=== PATIENT | female | born 1935 | race Caucasian/White ===

== ENCOUNTER 2016-10-28 22:52 | Inpatient (IN) | payer OTHER, MEDICARE ==
[2016-10-28 22:58] VITALS: BP 141/92; PULSE 88; RESP 18; TEMP 97.5; O2SAT 97
[2016-10-29] MEDS ORDERED: SODIUM CHLOR 0.9% 1000 ML INJ 1,000 ML IV SCH (00:15)
[2016-10-29] MEDS ORDERED: ONDANSETRON HCL 4 MG/2 ML VIAL IVP ONE (00:15)
[2016-10-29] MEDS ORDERED: MORPHINE SULFATE 4 MG/ML INJ IV PUSH ONE ×2 (00:15→04:30)
--- NOTE | 2016-10-29 01:04 | RADRPT ---
EXAM DATE/TIME: 10/29/2016 00:49 [place] COMPARISON: No previous studies available for comparison. INDICATIONS : Abdominal pain. ORAL CONTRAST: Patient refused oral contrast. RADIATION DOSE: 9.96 CTDIvol (mGy) MEDICAL HISTORY : None SURGICAL HISTORY : None. ENCOUNTER: Initial ACUITY: 1 day PAIN SCALE: 6/10 LOCATION: abdomen TECHNIQUE: Volumetric scanning of the abdomen and pelvis was performed. Using automated exposure control and ad justment of the mA and/or kV according to patient size, radiation dose was kept as low as reasonably achievable to obtain optimal diagnostic quality images. FINDINGS: LOWER LUNGS: The visualized lower lungs are clear. LIVER: Homogeneous density without lesion. The liver margins are mildly lobular. The patient is status post cholecystectomy. There is no dilation of the biliary tree. No calcified gallstones. SPLEEN: Normal size without lesion. PANCREAS: W normal in size and shape. There are calcifications along the scalp. KIDNEYS: Normal in size and shape. There is no mass, stone, or hydronephrosis. ADRENAL GLANDS: Within normal limits. VASCULAR: There is no aortic aneurysm. BOWEL/MESENTERY: The stomach, small bowel, and colon demonstrate no acute abnormality. There is no free intraperitone al air or fluid. ABDOMINAL WALL: Within normal limits. RETROPERITONEUM: There is no lymphadenopathy. BLADDER: No wall thickening or mass. REPRODUCTIVE: Within normal limits. INGUINAL: There is no lymphadenopathy or hernia. MUSCULOSKELETAL: Osteopenia, degenerative changes and scoliosis are present. There are multiple compression fracture d eformities in the thoracic and lumbar spine as well as multiple kyphoplasty's. Patient is status post bilateral hip surgery. CONCLUSION: 1. Mildly cirrhotic appearing liver. 2. Evidence of chronic pancreatitis. 3. Status post cholecystectomy. Bobby Estes MD on October 29, 2016 at 1:00 Board Certified Radiologist. This report was verified electronically.
[2016-10-29] MEDS ORDERED: ATOR40TA16 PO (01:35)
[2016-10-29] MEDS ORDERED: ALPR.5 PO (01:35)
[2016-10-29] MEDS: SODIUM CHLORIDE 0.9% FLUSH 10 ML FLUSH IV FLUSH PRN ×3 (01:57→06:48)
[2016-10-29 02:20] LABS: AUTOMATED NEUTROPHIL # 8.8 TH/MM3 (1.8-7.7); BASOPHIL # 0.2 TH/MM3 (0-0.2); BASOPHIL % 1.1 % (0.0-2.0); EOSINOPHIL # 0.3 TH/MM3 (0-0.4); EOSINOPHIL % 1.8 % (0.0-4.0); HEMATOCRIT 40.9 % (35.0-46.0); LYMPH % 30.8 % (9.0-44.0); LYMPHOCYTE # 5.2 TH/MM3 (1.0-4.8); MEAN CELL VOLUME 98.5 FL (80.0-100.0); MEAN CORPUSCULAR HEMOGLOBIN 31.7 PG (27.0-34.0); MEAN CORPUSCULAR HGB CONC 32.2 % (32.0-36.0); MONO % 14.1 % (0.0-8.0); NEUT % 52.2 % (16.0-70.0); PLATELET COUNT 325 TH/MM3 (150-450); RED BLOOD COUNT 4.15 MIL/MM3 (4.00-5.30); RED CELL DISTRIBUTION WIDTH 14.8 % (11.6-17.2); WHITE BLOOD COUNT 16.8 TH/MM3 (4.0-11.0)
[2016-10-29 02:22] LABS: HEMO FLAGS AUTO DIFF
--- NOTE | 2016-10-29 02:44 | PD ---
HPI Chief Complaint: Abdominal Pain Time Seen by Provider: 00:06 Travel History International Travel<30 days: No Contact w/Intl Traveler<30days: No Traveled to known affect area: No History of Present Illness HPI Patient is a 81 year old female who comes in complaining of abdominal pain. She says she has had diarrhea for the past few days, but developed severe pain to her abdomen tonight. She says she has had nausea and vomiting. She took an anti-emetic at home, which has helped. She denies fever or chills. She localizes her pain to her upper abdomen and left side. She denies recent antibiotic use. She has extensive history of abdominal surgeries. Most recently she had a procedure for a SBO last year and had issues with healing. PFSH Past Medical History High Cholesterol: Yes Diminished Hearing: Yes Tetanus Vaccination: > 5 Years Past Surgical History Neurologic Surgery: Yes (craniotomy*2 ) Other Surgery: Yes (splenectomy ) Social History Alcohol Use: No Tobacco Use: No Substance Use: No Allergies-Medications (Allergen,Severity, Reaction): Coded Allergies: Contrast Media (Verified Allergy, Unknown, 10/28/16) Penicillin (Verified Allergy, Unknown, 10/28/16) Sulfa (Verified Allergy, Unknown, 10/28/16) Tramadol (Verified Allergy, Unknown, 10/28/16) Reported Meds & Prescriptions Reported Meds & Active Scripts Active Reported Atorvastatin (Atorvastatin Calcium) 40 Mg Tab 40 Mg PO HS Xanax (Alprazolam) 0.5 Mg Tab 0.5 Mg PO Q6H PRN Review of Systems Except as stated in HPI: all other systems reviewed are Neg General / Constitutional: No: Fever, Chills Eyes: No: Blurred Vision HENT: No: Headaches Cardiovascular: No: Chest Pain or Discomfort Respiratory: No: Shortness of Breath Gastrointestinal: Positive: Nausea, Vomiting, Diarrhea, Abdominal Pain Genitourinary: No: Dysuria Musculoskeletal: No: Edema Skin: No Rash, No Change in Pigmentation Neurologic: No: Weakness, Dizziness Physical Exam Narrative GENERAL: Awake and alert, in mild distress due to pain. SKIN: Focused skin assessment warm/dry. HEAD: Atraumatic. Normocephalic. EYES: Pupils equal and round. No scleral icterus. ENT: Mucous membranes pink and moist. NECK: Trachea midline. No JVD. CARDIOVASCULAR: Regular rate and rhythm. No murmur appreciated. RESPIRATORY: No accessory muscle use. Clear to auscultation. Breath sounds equal bilaterally. GASTROINTESTINAL: Abdomen soft, nondistended. Tender to palpation of the epigastric and left upper quadrant areas of her abdomen. No rebound, voluntary guarding. MUSCULOSKELETAL: No obvious deformities. No clubbing. No cyanosis. No edema. NEUROLOGICAL: Awake and alert. No obvious cranial nerve deficits. Motor grossly within normal limits. Normal speech. PSYCHIATRIC: Appropriate mood and affect; insight and judgment normal. Data Data Last Documented VS Vital Signs Date Time Temp Pulse Resp B/P Pulse Ox O2 Delivery O2 Flow Rate FiO2 10/29/16 05:27 96 20 166/77 96 Room Air 10/28/16 22:58 97.5 Orders Basic Metabolic Panel (Bmp) (10/29/16:15) Complete Blood Count With Diff (10/29/16:15) Lipase (10/29/16:15) Lactic Acid (10/29/16:15) Prothrombin Time / Inr (Pt) (10/29/16) Act Partial Throm Time (Ptt) (10/29/16:15) Urinalysis - C+S If Indicated (10/29/16:15) Ua Includes Microscopic (10/29/16:15) Iv Access Insert/Monitor (10/29/1615) Ecg Monitoring (10/29/16:15) Oximetry (10/29/16:15) Morphine Inj (Morphine Inj) (10/29/16:15) Ondansetron Inj (Zofran Inj) (10/29/16:15) Sodium Chlor 0.9% 1000 Ml Inj (Ns 1000 M (10/29/16:15) Sodium Chloride 0.9% Flush (Ns Flush) (10/29/16:15) Ct Abd/Pel W/O Iv Contrast (10/29/16 ) Hepatic Functional Panel (10/29/16:15) Oral Contrast - Adult (10/29/16 00:19) Urine Culture (10/29/16 00:30) Ceftriaxone Inj (Rocephin Inj) (10/29/16 04:30) Morphine Inj (Morphine Inj) (10/29/16 04:30) Ondansetron Inj (Zofran Inj) (10/29/16 04:30) Admit Order (Ed Use Only) (10/29/16 ) Metoclopramide Inj (Reglan Inj) (10/29/16 06:30) Hydromorphone Pf Inj (Dilaudid Pf Inj) (10/29/16 06:30) Ciprofloxacin 400 Mg Premix (Cipro 400 M (10/29/16 07:00) Metronidazole 500 Mg Inj (Flagyl 500 Mg (10/29/16 08:00) Admit To Inpatient (10/29/16 ) Vital Signs (Adult) Q4H (10/29/16 06:14) Activity Oob With Assistance (10/29/16 06:14) Intake + Output MARISOL.QSHIFT (10/29/16 06:14) Diet Clear Liquid (10/29/16 Breakfast) Sodium Chlor 0.9% 1000 Ml Inj (Ns 1000 M (10/29/16 06:14) Sodium Chloride 0.9% Flush (Ns Flush) (10/29/16 06:15) Sodium Chloride 0.9% Flush (Ns Flush) (10/29/16 09:00) Ondansetron Inj (Zofran Inj) (10/29/16 06:15) Comprehensive Metabolic Panel (10/30/16 06:00) Complete Blood Count With Diff (10/30/16 06:00) Lipase (10/30/16 06:00) Scd Bilateral/Knee High MARISOL.BID (10/29/16 06:14) Harry Bilateral/Knee High MARISOL.QSHIFT (10/29/16 06:14) Acetaminophen (Tylenol) (10/29/16 06:15) Hydromorphone Pf Inj (Dilaudid Pf Inj) (10/29/16 06:15) Oxycodone (Roxicodone) (10/29/16 06:15) Docusate Sodium-Senna (Celeste-Colace) (10/29/16 09:00) Magnesium Hydroxide Liq (Milk Of Magnesi (10/29/16 06:15) Sennosides (Senokot) (10/29/16 06:15) Bisacodyl Supp (Dulcolax Supp) (10/29/16 06:15) Lactulose Liq (Lactulose Liq) (10/29/16 06:15) Inpatient Certification (10/29/16 ) Lipid Profile (10/30/16 06:00) Thyroid Stimulating Hormone (10/30/16 06:00) Hemoglobin (Hgb) A1c (10/30/16 06:00) Alprazolam (Xanax) (10/29/16 06:15) Labs Laboratory Tests Test 10/29/16 10/29/16 10/29/16 10/29/16 00:30 01:42 01:45 03:26 Urine Color YELLOW Urine Turbidity HAZY Urine pH 5.5 Urine Specific [place] 1.021 Urine Protein TRACE mg/dL Urine Glucose (UA) NEG mg/dL Urine Ketones NEG mg/dL Urine Occult Blood TRACE Urine Nitrite NEG Urine Bilirubin NEG Urine Urobilinogen LESS THAN 2.0 MG/DL Urine Leukocyte Esterase LARGE Urine RBC 4 /hpf Urine WBC 20 /hpf Urine Squamous Epithelial 1 /hpf Cells Urine Bacteria MANY /hpf Urine Hyaline Casts 1 /lpf Urine Mucus FEW /lpf Microscopic Urinalysis Comment CULTURE INDICATED White Blood Count 16.8 TH/MM3 Red Blood Count 4.15 MIL/MM3 Hemoglobin 13.2 GM/DL Hematocrit 40.9 % Mean Corpuscular Volume 98.5 FL Mean Corpuscular Hemoglobin 31.7 PG Mean Corpuscular Hemoglobin 32.2 % Concent Red Cell Distribution Width 14.8 % Platelet Count 325 TH/MM3 Mean Platelet Volume 8.3 FL Neutrophils (%) (Auto) 52.2 % Lymphocytes (%) (Auto) 30.8 % Monocytes (%) (Auto) 14.1 % Eosinophils (%) (Auto) 1.8 % Basophils (%) (Auto) 1.1 % Neutrophils # (Auto) 8.8 TH/MM3 Lymphocytes # (Auto) 5.2 TH/MM3 Monocytes # (Auto) 2.4 TH/MM3 Eosinophils # (Auto) 0.3 TH/MM3 Basophils # (Auto) 0.2 TH/MM3 CBC Comment AUTO DIFF Differential Total Cells 100 Counted Neutrophils % (Manual) 50 % Band Neutrophils % 2 % Lymphocytes % 31 % Monocytes % 13 % Eosinophils % 2 % Basophils % 2 % Neutrophils # (Manual) 8.7 TH/MM3 Differential Comment FINAL DIFF MANUAL Atypical Lymphocytes % Platelet Estimate NORMAL Platelet Morphology Comment NORMAL Prothrombin Time 10.7 SEC Prothromb Time International 1.0 RATIO Ratio Activated Partial 25.0 SEC Thromboplast Time Lactic Acid Level 1.5 mmol/L Sodium Level 145 MEQ/L Potassium Level 4.3 MEQ/L Chloride Level 114 MEQ/L Carbon Dioxide Level 19.2 MEQ/L Anion Gap 12 MEQ/L Blood Urea Nitrogen 21 MG/DL Creatinine 1.14 MG/DL Estimat Glomerular Filtration 46 ML/MIN Rate Random Glucose 88 MG/DL Calcium Level 8.3 MG/DL Total Bilirubin 0.5 MG/DL Direct Bilirubin 0.2 MG/DL Indirect Bilirubin 0.3 MG/DL Aspartate Amino Transf 46 U/L (AST/SGOT) Alanine Aminotransferase 32 U/L (ALT/SGPT) Alkaline Phosphatase 92 U/L Total Protein 6.5 GM/DL Albumin 3.0 GM/DL Lipase U/L [facility] Medical Decision Making Medical Screen Exam Complete: Yes Emergency Medical Condition: Yes Differential Diagnosis Small bowel obstruction versus colitis versus pancreatitis versus cholecystitis Narrative Course Patient is an 81-year-old female comes in complaining of abdominal pain. Exam shows tenderness to the upper abdomen. IV established, labs sent. Patient given IV fluids, morphine, Zofran. CT abdomen and pelvis shows chronic pancreatitis. No evidence of SBO. Last 24 hours Impressions Abdomen/Pelvis CT 10/29/16 0000 Signed Impressions: Service Date/Time: Saturday, October 29, 2016 00:49 - CONCLUSION: 1. Mildly cirrhotic appearing liver. 2. Evidence of chronic pancreatitis. 3. Status post cholecystectomy. Bobby Estes MD Labs show an elevated white blood cell count. The chemistry lab, her lipase was too elevated to be resulted. They reported they did not have enough blood to run it again. A second sample was sent. Patient continues to have pain. She received an additional dose of morphine and Zofran. She had pain and nausea despite this. She was given Reglan and Dilaudid. She was admitted for further management. Diagnosis Primary Impression: Pancreatitis Qualified Code: K85.90 - Acute pancreatitis without infection or necrosis, unspecified pancreatitis type Additional Impressions: Leukocytosis Qualified Code: D72.829 - Leukocytosis, unspecified type Nausea and vomiting Qualified Code: R11.2 - Non-intractable vomiting with nausea, unspecified vomiting type Abdominal pain Qualified Code: R10.13 - Epigastric pain Admitting Information Admitting Physician Requests: Admit Condition: Rose Howard MD Oct 29, 2016 02:44
[2016-10-29 04:08] LABS: BACTERIA, URINE MANY /hpf; BLOOD, URINE TRACE (NEG); COMMENT (UR) CULTURE INDICATED; CULTURE IF INDICATED CULTURE INDICATED; GLUCOSE,URINE NEG (NEG); HYALINE CAST, URINE 1 /lpf (RARE); KETONE, URINE NEG (NEG); MUCUS URINE FEW /lpf (OCC); NITRITE,URINE NEG (NEG); PH, URINE 5.5 (5.0-8.5); SQUAMOUS EPITHELIAL CELL URINE 1 /hpf (0-5); URINE COLOR YELLOW (YELLW/STRAW)
[2016-10-29 04:15] LABS: BANDS 2 % (0-6); BASOPHILS 2 % (0-2); EOSINOPHILS 2 % (0-4); NEUTROPHIL # MANUAL DIFF 8.7 TH/MM3 (1.8-7.7); PLATELET ESTIMATE SMEAR NORMAL (NORMAL); POLYS (SEG NEUTROPHILS) 50 % (16-70); SCAN/DIFF FINAL DIFF MANUAL; WBC DIFF SAMPLE 100
[2016-10-29 04:16] LABS: PLATELET MORPHOLOGY NORMAL (NORMAL)
[2016-10-29 04:29] LABS: PROTHROMBIN TIME - PATIENT 10.7 SEC (9.8-11.6)
[2016-10-29] MEDS ORDERED: ONDANSETRON HCL 4 MG/2 ML VIAL IV PUSH ONE (04:30)
[2016-10-29] MEDS ORDERED: cefTRIAXone INJ 1,000 MG in SODIUM CHLORIDE 0.9% INJ 100 ML IV ONE (04:30)
[2016-10-29 04:39] LABS: BICARBONATE 19.2 MEQ/L (21.0-32.0); POTASSIUM 4.3 MEQ/L (3.5-5.1)
[2016-10-29 04:42] LABS: INDIRECT BILIRUBIN 0.3 MG/DL (0.0-0.8); TOTAL BILIRUBIN ADULT 0.5 MG/DL (0.2-1.0)
[2016-10-29 05:27] VITALS: BP 166/77; PULSE 96; RESP 20; O2SAT 96
[2016-10-29] MEDS ORDERED: SODIUM CHLORIDE 0.9% FLUSH 10 ML FLUSH IV FLUSH PRN (06:15)
[2016-10-29] MEDS ORDERED: LACTULOSE SYRUP 20 GM/30 ML CUP PO PRN (06:15)
[2016-10-29] MEDS ORDERED: MAGNESIUM HYDROXIDE SUSP 30 ML CUP PO PRN (06:15)
[2016-10-29] MEDS ORDERED: BISACODYL 10 MG SUPP RECTAL PRN (06:15)
[2016-10-29] MEDS ORDERED: ACETAMINOPHEN 325 MG TAB PO PRN (06:15)
[2016-10-29] MEDS ORDERED: SENNOSIDES 8.6 MG TAB PO PRN (06:15)
[2016-10-29] MEDS ORDERED: HYDROmorphone HCL PF 1 MG/ML VIAL IV PUSH ONE (06:30)
[2016-10-29] MEDS ORDERED: METOCLOPRAMIDE INJ 10 MG in SODIUM CHLORIDE 0.9% INJ 50 ML IV ONE (06:30)
[2016-10-29 08:00] VITALS: BP 149/77; PULSE 90; RESP 18; TEMP 96.6; O2SAT 93
[2016-10-29] MEDS: CIPROFLOXACIN 400 MG PREMIX 200 ML IV SCH ×2 (08:25→17:51)
[2016-10-29] MEDS: metroNIDAZOLE 500 MG INJ 100 ML IV SCH ×2 (08:26→17:52)
[2016-10-29] MEDS: ALPRAZolam 0.5 MG TAB PO PRN ×2 (08:26→14:21)
[2016-10-29] MEDS: SODIUM CHLOR 0.9% 1000 ML INJ 1,000 ML IV SCH ×2 (08:27→16:14)
[2016-10-29] MEDS: DOCUSATE SODIUM 50 MG/SENNA 8.6 MG TAB PO SCH ×2 (08:27→20:00)
[2016-10-29] MEDS: SODIUM CHLORIDE 0.9% FLUSH 10 ML FLUSH IV FLUSH SCH ×2 (08:27→20:00)
[2016-10-29 12:00] VITALS: BP 111/71; PULSE 103; RESP 18; TEMP 95.3; O2SAT 95
[2016-10-29] MEDS: ONDANSETRON HCL 4 MG/2 ML VIAL IVP PRN (14:21)
[2016-10-29] MEDS: HYDROmorphone HCL PF 1 MG/ML VIAL IV PRN ×2 (14:21→20:01)
[2016-10-29 16:00] VITALS: BP 113/73; PULSE 86; RESP 18; TEMP 95.5; O2SAT 95
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
[2016-10-29 20:05] LABS: BICARBONATE 16.7 MEQ/L (21.0-32.0); MAGNESIUM 1.8 MG/DL (1.5-2.5); POTASSIUM 4.1 MEQ/L (3.5-5.1)
[2016-10-29 20:08] LABS: HDL CHOLESTEROL 38.7 MG/DL (40.0-60.0)
[2016-10-29 20:10] VITALS: BP 120/60; PULSE 89; RESP 16; TEMP 97.7; O2SAT 94
[2016-10-29 20:59] LABS: AUTOMATED NEUTROPHIL # 8.3 TH/MM3 (1.8-7.7); BASOPHIL # 0.2 TH/MM3 (0-0.2); BASOPHIL % 1.1 % (0.0-2.0); EOSINOPHIL # 0.2 TH/MM3 (0-0.4); EOSINOPHIL % 1.4 % (0.0-4.0); HEMATOCRIT 34.7 % (35.0-46.0); LYMPH % 27.3 % (9.0-44.0); LYMPHOCYTE # 4.1 TH/MM3 (1.0-4.8); MEAN CELL VOLUME 98.9 FL (80.0-100.0); MEAN CORPUSCULAR HEMOGLOBIN 31.4 PG (27.0-34.0); MEAN CORPUSCULAR HGB CONC 31.8 % (32.0-36.0); MONO % 14.9 % (0.0-8.0); NEUT % 55.3 % (16.0-70.0); PLATELET COUNT 263 TH/MM3 (150-450); RED CELL DISTRIBUTION WIDTH 14.2 % (11.6-17.2)
[2016-10-29 21:02] LABS: HEMO FLAGS AUTO DIFF
[2016-10-29 21:20] LABS: TOTAL BILIRUBIN ADULT 0.3 MG/DL (0.2-1.0)
[2016-10-29 21:32] LABS: PLATELET ESTIMATE SMEAR NORMAL (NORMAL); PLATELET MORPHOLOGY NORMAL (NORMAL); SCAN/DIFF AUTO DIFF CONFIRMED
[2016-10-29] MEDS: HEPARIN SODIUM - SQ 10,000 UNITS/ML VIAL SQ SCH (21:51)
[2016-10-30 00:10] VITALS: BP 142/79; PULSE 91; RESP 17; TEMP 97.5; O2SAT 94
[2016-10-30] MEDS: ALPRAZolam 0.5 MG TAB PO PRN ×3 (00:13→23:20)
[2016-10-30] MEDS: ONDANSETRON HCL 4 MG/2 ML VIAL IVP PRN ×3 (00:13→15:16)
[2016-10-30] MEDS: metroNIDAZOLE 500 MG INJ 100 ML IV SCH ×4 (00:13→23:21)
[2016-10-30] MEDS: SODIUM CHLOR 0.9% 1000 ML INJ 1,000 ML IV SCH ×2 (02:14→12:14)
[2016-10-30] MEDS: CIPROFLOXACIN 400 MG PREMIX 200 ML IV SCH ×2 (06:18→18:29)
[2016-10-30] MEDS: HEPARIN SODIUM - SQ 10,000 UNITS/ML VIAL SQ SCH ×3 (06:18→21:37)
[2016-10-30] MEDS: HYDROmorphone HCL PF 1 MG/ML VIAL IV PRN ×5 (06:23→21:38)
[2016-10-30 07:17] LABS: ANION GAP 11 MEQ/L (5-15); AST (GOT) 35 U/L (15-37); BICARBONATE 17.5 MEQ/L (21.0-32.0); BLOOD UREA NITROGEN 11 MG/DL (7-18); CHLORIDE 116 MEQ/L (98-107); GLOMERULAR FILTRATION RATE 81 ML/MIN (>89); MAGNESIUM 1.7 MG/DL (1.5-2.5); POTASSIUM 3.9 MEQ/L (3.5-5.1); SODIUM (NA) 144 MEQ/L (136-145)
[2016-10-30 07:18] LABS: ALT (GPT) 41 U/L (10-53)
[2016-10-30 07:22] LABS: AUTOMATED NEUTROPHIL # 4.5 TH/MM3 (1.8-7.7); BASOPHIL # 0.1 TH/MM3 (0-0.2); BASOPHIL % 0.7 % (0.0-2.0); EOSINOPHIL # 0.4 TH/MM3 (0-0.4); EOSINOPHIL % 3.8 % (0.0-4.0); HEMO FLAGS DIFF FINAL; LYMPH % 38.3 % (9.0-44.0); LYMPHOCYTE # 4.1 TH/MM3 (1.0-4.8); MEAN CELL VOLUME 99.5 FL (80.0-100.0); MEAN CORPUSCULAR HEMOGLOBIN 33.2 PG (27.0-34.0); MEAN CORPUSCULAR HGB CONC 33.4 % (32.0-36.0); MONO % 15.2 % (0.0-8.0); PLATELET COUNT 261 TH/MM3 (150-450); RED BLOOD COUNT 3.21 MIL/MM3 (4.00-5.30); RED CELL DISTRIBUTION WIDTH 14.5 % (11.6-17.2); WHITE BLOOD COUNT 10.6 TH/MM3 (4.0-11.0)
[2016-10-30 07:26] LABS: ALKALINE PHOSPHATASE 84 U/L (45-117); HDL CHOLESTEROL 36.3 MG/DL (40.0-60.0); LDL CHOLESTEROL 32 MG/DL (0-99); TOTAL BILIRUBIN ADULT 0.5 MG/DL (0.2-1.0)
[2016-10-30 07:57] VITALS: BP 129/76; PULSE 88; RESP 18; TEMP 97; O2SAT 94
[2016-10-30] MEDS: SODIUM CHLORIDE 0.9% FLUSH 10 ML FLUSH IV FLUSH SCH ×2 (08:59→21:00)
[2016-10-30] MEDS: DOCUSATE SODIUM 50 MG/SENNA 8.6 MG TAB PO SCH ×2 (09:00→21:37)
[2016-10-30 12:00] VITALS: BP 147/81; PULSE 99; RESP 18; TEMP 97.1; O2SAT 92
[2016-10-30] MEDS: POTASSIUM PHOSPHATE MONOBASIC 500 MG TAB PO SCH ×2 (13:00→21:37)
[2016-10-30] MEDS ORDERED: DEXTROSE 50% IN WATER 50 ML VIAL(D50) IV PUSH PRN (13:15)
[2016-10-30] MEDS ORDERED: GLUCAGON 1 MG/ML VIAL OTHER PRN (13:15)
[2016-10-30] MEDS ORDERED: PHENERGAN 25 MG/ML IV ONE (15:30)
[2016-10-30] MEDS ORDERED: PHENERGAN 25 MG/ML IM ONE ×2 (15:30→15:45)
[2016-10-30 16:00] VITALS: BP 183/95; PULSE 100; RESP 18; TEMP 97.6; O2SAT 92
[2016-10-30 16:52] VITALS: BP 159/87
--- NOTE | 2016-10-30 17:06 | HHI.PR ---
Subjective Remarks Patient feels extremely nauseous today she cannot handle her liquid diet I told her to stop any diet and stay nothing by mouth we'll consult GI we'll continue iv fluid I will increase the rate Objective Vitals Vital Signs Date Time Temp Pulse Resp B/P Pulse Ox O2 Delivery O2 Flow Rate FiO2 10/30/16 16:52 159/87 10/30/16 16:00 97.6 100 18 183/95 92 10/30/16 12:00 97.1 99 18 147/81 92 10/30/16 07:57 97.0 88 18 129/76 94 10/30/16 00:10 97.5 91 17 142/79 94 10/29/16 20:10 97.7 89 16 120/60 94 I/O 10/29/16 10/29/16 10/29/16 10/30/16 10/30/16 10/30/16 07:00 15:00 23:00 07:00 15:00 23:00 Intake Total 480 ml 240 ml 1020 ml 240 ml Balance 480 ml 240 ml 1020 ml 240 ml Intake Oral 480 ml 240 ml 240 ml IV Total 1020 ml # Voids 1 1 1 1 # Bowel Movements 0 0 0 Result Diagram: 10/30/1662010/30/16620 Objective Remarks - - GENERAL: This is a frail elderly lady in mild distress due to nausea SKIN: No rashes, warm and dry HEAD: Atraumatic. Normocephalic. EYES: Pupils equal round and reactive. Extraocular motions intact. No scleral icterus. ENT: Nose without bleeding, or drainage, Airway patent. NECK: Trachea midline. Supple CARDIOVASCULAR: Regular rate and rhythm without murmurs, gallops, or rubs. RESPIRATORY: Fair air entry bilaterally. No wheezes, rales, or rhonchi. GASTROINTESTINAL: Abdomen soft, mildly tender in the epigastric area, nondistended. Positive bowel sounds MUSCULOSKELETAL: Extremities without clubbing, cyanosis, or edema. Pedal pulses appreciated NEUROLOGICAL: Awake and alert. Moves all extremity. Normal speech.no focal neurological deficit A/P Assessment and Plan 81 years old female with history of previous SBO status post complicated surgery , hyperlipidemia came today with Severe abdominal pain with nausea vomiting and watery diarrhea Cirrhotic liver appearance on CT abdomen along with increased AST, rule out alcoholism versus NFLD Chronic pancreatitis showed on CT abdomen which was personally reviewed by me Leukocytosis WBC 16,000, no bandemia Hypophosphatemia FIGUEROA versus CKD creatinine 1.14 we don't have baseline Metabolic acidosis with bicarbonate 19 UTI with RBC and microscopic hematuria DVT prophylaxis with SCD and heparin Plan: Change diet to nothing by mouth, lipase level dropped from 1181 yesterday to 851 today A phosphorus hyperphosphatemia, check T4 for low TSH Send urine for C&S and stool for C&S and parasites and ova Started on Cipro and Flagyl, Cipro will cover UTI Generous iv fluid normal saline Dilaudid 4 pain management L Consider GI consult if needed CT abdomen personally reviewed by me Check hepatitis panel, fasting lipid profile panel Patient denied alcohol. In her life Vignesh Cagle MD Oct 30, 2016 17:05
[2016-10-30] MEDS: INSULIN ASPART SUPPLEMENTAL SCALE SQ SCH ×2 (17:50→21:00)
[2016-10-30] MEDS ORDERED: ATEN50TA PO (18:35)
[2016-10-30] MEDS ORDERED: ASPI81CH CHEW (18:37)
[2016-10-30] MEDS ORDERED: ALEVE PO (18:37)
[2016-10-30 20:05] VITALS: BP 183/94; PULSE 115; RESP 18; TEMP 98; O2SAT 94
[2016-10-31 00:05] VITALS: BP 138/85; PULSE 99; RESP 18; TEMP 98; O2SAT 96
[2016-10-31] MEDS: HYDROmorphone HCL PF 1 MG/ML VIAL IV PRN ×5 (02:31→23:51)
[2016-10-31] MEDS: SODIUM CHLOR 0.9% 1000 ML INJ 1,000 ML IV SCH ×4 (02:31→22:35)
[2016-10-31] MEDS: INSULIN ASPART SUPPLEMENTAL SCALE SQ SCH ×4 (06:25→20:33)
[2016-10-31] MEDS: CIPROFLOXACIN 400 MG PREMIX 200 ML IV SCH ×2 (06:25→20:18)
[2016-10-31] MEDS: HEPARIN SODIUM - SQ 10,000 UNITS/ML VIAL SQ SCH ×3 (06:25→22:35)
[2016-10-31 06:39] LABS: BICARBONATE 19.6 MEQ/L (21.0-32.0); MAGNESIUM 1.6 MG/DL (1.5-2.5); POTASSIUM 3.8 MEQ/L (3.5-5.1)
[2016-10-31] MEDS: POTASSIUM PHOSPHATE MONOBASIC 500 MG TAB PO SCH ×2 (07:39→20:18)
[2016-10-31] MEDS: DOCUSATE SODIUM 50 MG/SENNA 8.6 MG TAB PO SCH ×2 (07:39→20:18)
[2016-10-31] MEDS: metroNIDAZOLE 500 MG INJ 100 ML IV SCH ×3 (07:40→22:35)
[2016-10-31] MEDS: SODIUM CHLORIDE 0.9% FLUSH 10 ML FLUSH IV FLUSH SCH ×2 (07:42→20:18)
[2016-10-31 08:00] VITALS: BP 143/85; PULSE 90; RESP 16; TEMP 97.3; O2SAT 91
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
[2016-10-31] MEDS: PANTOPRAZOLE SODIUM 40 MG VIAL IV PUSH SCH (11:04)
[2016-10-31 12:32] VITALS: BP 130/85; PULSE 96; RESP 16; TEMP 97.5; O2SAT 92
[2016-10-31 13:04] LABS: TRANSFERRIN IRON PROFILE 145 MG/DL (200-360)
[2016-10-31 13:07] LABS: FERRITIN 223 NG/ML (8-252)
--- NOTE | 2016-10-31 15:22 | HHI.PR ---
Subjective Remarks patient denied nausea today she still having some abdominal discomfort, no fever or chills Objective Vitals Vital Signs Date Time Temp Pulse Resp B/P Pulse Ox O2 Delivery O2 Flow Rate FiO2 10/31/16 12:32 97.5 96 16 130/85 92 10/31/16 08:00 97.3 90 16 143/85 91 10/31/16 00:05 98.0 99 18 138/85 96 10/30/16 20:05 98.0 115 18 183/94 94 10/30/16 16:52 159/87 10/30/16 16:00 97.6 100 18 183/95 92 I/O 10/30/16 10/30/16 10/30/16 10/31/16 10/31/16 10/31/16 07:00 15:00 23:00 07:00 15:00 23:00 Intake Total 1020 ml 240 ml 660 ml Balance 1020 ml 240 ml 660 ml Intake Oral 240 ml IV Total 1020 ml 660 ml # Voids 1 1 1 1 # Bowel Movements 0 0 0 0 Result Diagram: 10/30/16 0621 10/31/16 0538 Objective Remarks - - GENERAL: This is a frail elderly lady in mild distress due to nausea SKIN: No rashes, warm and dry HEAD: Atraumatic. Normocephalic. EYES: Pupils equal round and reactive. Extraocular motions intact. No scleral icterus. ENT: Nose without bleeding, or drainage, Airway patent. NECK: Trachea midline. Supple CARDIOVASCULAR: Regular rate and rhythm without murmurs, gallops, or rubs. RESPIRATORY: Fair air entry bilaterally. No wheezes, rales, or rhonchi. GASTROINTESTINAL: Abdomen soft, mildly tender in the epigastric area, nondistended. Positive bowel sounds MUSCULOSKELETAL: Extremities without clubbing, cyanosis, or edema. Pedal pulses appreciated NEUROLOGICAL: Awake and alert. Moves all extremity. Normal speech.no focal neurological deficit A/P Assessment and Plan 81 years old female with history of previous SBO status post complicated surgery , hyperlipidemia came today with Severe abdominal pain with nausea vomiting and watery diarrhea Cirrhotic liver appearance on CT abdomen along with increased AST, rule out alcoholism versus NFLD Chronic pancreatitis showed on CT abdomen which was personally reviewed by me Leukocytosis WBC 16,000, no bandemia Hypophosphatemia FIGUEROA versus CKD creatinine 1.14 we don't have baseline Metabolic acidosis with bicarbonate 19 UTI with RBC and microscopic hematuria DVT prophylaxis with SCD and heparin Plan: appreciate GI consultation, extensive workup to rule out autoimmune pancreatitis versus other nonalcoholic source Change diet to nothing by mouth, A phosphorus hyperphosphatemia, check T4 for low TSH Send urine for C&S and stool for C&S and parasites and ova Started on Cipro and Flagyl, Cipro will cover UTI Generous iv fluid normal saline Dilaudid 4 pain management L Consider GI consult if needed CT abdomen personally reviewed by me Check hepatitis panel, fasting lipid profile panel Patient denied alcohol. In her life Vignesh Cagle MD Oct 31, 2016 15:22
[2016-10-31 16:17] LABS: HEMOGLOBIN A1a 1.2 %; HEMOGLOBIN A1b 2.1 %; HEMOGLOBIN Ao 83.4 %; HEMOGLOBIN LA1C 1.7 %; HEMOGLOBIN P3 4.2 %
[2016-10-31 16:30] VITALS: BP 192/90; PULSE 108; RESP 20; TEMP 96.1; O2SAT 93
--- NOTE | 2016-10-31 18:20 | RADRPT ---
EXAM DATE/TIME: 10/31/2016 17:55 [facility] COMPARISON: No previous studies available for comparison. INDICATIONS : MRI clearance. MEDICAL HISTORY : None. SURGICAL HISTORY : Craniotomy. ENCOUNTER: Initial ACUITY: 1 day PAIN SCORE: 0/10 LOCATION: Bilateral chest FINDINGS: There is bibasilar atelectasis. No pleural effusion seen. No pneumothorax. Heart size within normal l imits. No metallic implants are demonstrated. Patient has had kyphoplasty at multiple mid and lower thoracic vertebral bodies. CONCLUSION: Bibasilar atelectasis. No contraindications to MRI demonstrated. Dillon Willett MD on October 31, 2016 at 18:17 Board Certified Radiologist. This report was verified electronically.
--- NOTE | 2016-10-31 18:22 | RADRPT ---
EXAM DATE/TIME: 10/31/2016 17:57 [facility] COMPARISON: No previous studies available for comparison. INDICATIONS : MRI clearance. MEDICAL HISTORY : None. SURGICAL HISTORY : Craniotomy. ENCOUNTER: Initial ACUITY: 1 day PAIN SCORE: 0/10 LOCATION: skull FINDINGS: The patient has had previous craniotomy with multi-focal screw and plate closure. No other radiopaque objects are demonstrated. I don't see any aneurysm clip. CONCLUSION: No contraindications to MRI demonstrated. Patient has had previous craniotomy. Dillon Willett MD on October 31, 2016 at 18:18 Board Certified Radiologist. This report was verified electronically.
[2016-10-31 20:05] VITALS: BP 189/88; PULSE 115; RESP 18; TEMP 98; O2SAT 92
[2016-10-31] MEDS: ONDANSETRON HCL 4 MG/2 ML VIAL IVP PRN (20:17)
--- NOTE | 2016-10-31 20:19 | RADRPT ---
EXAM DATE/TIME: 10/31/2016 18:27 [facility] COMPARISON: CT ABDOMEN & PELVIS W/O CONTRAST, October 29, 2016, 0:49. INDICATIONS : Pancreatitis. MEDICAL HISTORY : Hypertension. Hypothyroidism. Hyperlipidemia. SURGICAL HISTORY : Craniotomy. Cholecystectomy. Splenectomy. Bilateral hips ENCOUNTER: Initial ACUITY: 2 day PAIN SCORE: 2/10 LOCATION: Bilateral upper quadrant TECHNIQUE: Multiplanar, multisequence magnetic resonance imaging of the abdomen was performed. High-resolution 3D dataset was utilized to reconstruct maximum-intensity projection (MIP) images. FINDINGS: Previous cholecystectomy. Prominent common bile duct and cystic duct remnant, most likely postcholecy stectomy reservoir effect. Common bile duct is approximately 15 mm. I don't see a stone or mass. Ther e is no pancreatic duct dilatation. Scattered calcifications are seen in the pancreas typical of chronic pancreatitis changes. No acute i nflammatory changes are demonstrated. CONCLUSION: 1. No acute pancreatitis or other acute inflammatory changes are seen. Mild chronic pancreatitis hallman ges again noted. 2. Previous cholecystectomy with presumably post CCK reservoir type prominence of the common bile rené t. No stone or perceptible mass. There is no pancreatic duct dilatation. Dillon Willett MD on October 31, 2016 at 20:14 Board Certified Radiologist. This report was verified electronically.
[2016-10-31] MEDS: ENALAPRILAT 2.5 MG/2 ML VIAL IV PUSH PRN (22:36)
[2016-10-31] MEDS ORDERED: PROMETHAZINE HCL 12.5 MG SUPP RECTAL ONE (23:45)
[2016-11-01 00:10] VITALS: BP 183/91; PULSE 108; RESP 18; TEMP 98.9; O2SAT 92
[2016-11-01] MEDS: ONDANSETRON HCL 4 MG/2 ML VIAL IVP PRN ×4 (03:21→22:08)
[2016-11-01] MEDS: HYDROmorphone HCL PF 1 MG/ML VIAL IV PRN ×6 (03:22→20:45)
[2016-11-01 04:10] VITALS: BP 178/84; PULSE 100; RESP 18; TEMP 98.1; O2SAT 93
[2016-11-01] MEDS: SODIUM CHLOR 0.9% 1000 ML INJ 1,000 ML IV SCH ×2 (06:18→12:34)
[2016-11-01] MEDS: HEPARIN SODIUM - SQ 10,000 UNITS/ML VIAL SQ SCH ×3 (06:18→22:07)
[2016-11-01] MEDS: CIPROFLOXACIN 400 MG PREMIX 200 ML IV SCH ×2 (06:18→18:13)
[2016-11-01 06:22] LABS: BASOPHIL # 0.2 TH/MM3 (0-0.2); BASOPHIL % 1.3 % (0.0-2.0); EOSINOPHIL # 0.1 TH/MM3 (0-0.4); HEMATOCRIT 38.5 % (35.0-46.0); LYMPH % 29.8 % (9.0-44.0); LYMPHOCYTE # 3.5 TH/MM3 (1.0-4.8); MEAN CELL VOLUME 98.5 FL (80.0-100.0); MEAN CORPUSCULAR HEMOGLOBIN 31.5 PG (27.0-34.0); MONO % 16.2 % (0.0-8.0); NEUT % 51.7 % (16.0-70.0); PLATELET COUNT 261 TH/MM3 (150-450); RED BLOOD COUNT 3.91 MIL/MM3 (4.00-5.30); RED CELL DISTRIBUTION WIDTH 14.5 % (11.6-17.2); WHITE BLOOD COUNT 11.7 TH/MM3 (4.0-11.0)
[2016-11-01 06:28] LABS: ALT (GPT) 49 U/L (10-53); ANION GAP 10 MEQ/L (5-15); AST (GOT) 50 U/L (15-37); BICARBONATE 20.6 MEQ/L (21.0-32.0); CHLORIDE 112 MEQ/L (98-107); GLOMERULAR FILTRATION RATE 96 ML/MIN (>89); POTASSIUM 3.8 MEQ/L (3.5-5.1); SODIUM (NA) 143 MEQ/L (136-145)
[2016-11-01 06:29] LABS: BLOOD UREA NITROGEN 4 MG/DL (7-18)
[2016-11-01 06:30] LABS: ALKALINE PHOSPHATASE 106 U/L (45-117); TOTAL BILIRUBIN ADULT 0.5 MG/DL (0.2-1.0)
[2016-11-01] MEDS: INSULIN ASPART SUPPLEMENTAL SCALE SQ SCH ×4 (06:34→21:00)
[2016-11-01 06:52] LABS: HEMO FLAGS AUTO DIFF; PLATELET ESTIMATE SMEAR NORMAL (NORMAL); PLATELET MORPHOLOGY ENLARGED (NORMAL)
[2016-11-01 06:53] LABS: SCAN/DIFF AUTO DIFF CONFIRMED
[2016-11-01 08:00] VITALS: BP 140/80; PULSE 93; RESP 18; TEMP 97.9; O2SAT 94
[2016-11-01] MEDS: SODIUM CHLORIDE 0.9% FLUSH 10 ML FLUSH IV FLUSH SCH ×2 (08:21→22:08)
[2016-11-01] MEDS: POTASSIUM PHOSPHATE MONOBASIC 500 MG TAB PO SCH (08:21)
[2016-11-01] MEDS: DOCUSATE SODIUM 50 MG/SENNA 8.6 MG TAB PO SCH ×2 (08:21→22:08)
[2016-11-01] MEDS: metroNIDAZOLE 500 MG INJ 100 ML IV SCH ×3 (08:22→22:09)
[2016-11-01] MEDS ORDERED: LEVO125T4 PO (08:25)
[2016-11-01] MEDS: PANTOPRAZOLE SODIUM 40 MG VIAL IV PUSH SCH (10:15)
[2016-11-01 12:00] VITALS: BP 144/88; PULSE 96; RESP 18; TEMP 98; O2SAT 93
--- NOTE | 2016-11-01 13:54 | HHI.PR ---
Subjective Remarks The patient was complaining of pain at an 8 out of 10. She wants something to drink like broth. She says she has been constipated. She says the pain medications work but to briefly. Her son was at the bedside and their questions were answered. Discussed with nursing. Objective Vitals Vital Signs Date Time Temp Pulse Resp B/P Pulse Ox O2 Delivery O2 Flow Rate FiO2 11/01/16 12:00 98.0 96 18 144/88 93 11/01/16 08:00 97.9 93 18 140/80 94 11/01/16 04:10 98.1 100 18 178/84 93 11/01/16 00:10 98.9 108 18 183/91 92 10/31/16 20:05 98.0 115 18 189/88 92 10/31/16 18:41 Room Air 10/31/16 16:30 96.1 108 20 192/90 93 I/O 10/31/16 10/31/16 10/31/16 11/01/16 11/01/16 11/01/16 07:00 15:00 23:00 07:00 15:00 23:00 Intake Total 0 ml 2549 ml 1425 ml Balance 0 ml 2549 ml 1425 ml Intake Oral 0 ml IV Total 2549 ml 1425 ml # Voids 1 5 2 2 # Bowel Movements 0 0 0 0 Result Diagram: 11/01/16 0548 11/01/16 0548 Imaging Last Impressions Skull X-Ray 10/31/16 0000 Signed Impressions: Service Date/Time: Monday, October 31, 2016 17:57 - CONCLUSION: No contraindications to MRI demonstrated. Patient has had previous craniotomy. Dillon Willett MD Cholangiopancreatography MRI 10/31/16 0000 Signed Impressions: Service Date/Time: Monday, October 31, 2016 18:27 - CONCLUSION: 1. No acute pancreatitis or other acute inflammatory changes are seen. Mild chronic pancreatitis changes again noted. 2. Previous cholecystectomy with presumably post CCK reservoir type prominence of the common bile duct. No stone or perceptible mass. There is no pancreatic duct dilatation. Dillon Willett MD Chest X-Ray 10/31/16 0000 Signed Impressions: Service Date/Time: Monday, October 31, 2016 17:55 - CONCLUSION: Bibasilar atelectasis. No contraindications to MRI demonstrated. Dillon Willett MD Abdomen/Pelvis CT 10/29/16 0000 Signed Impressions: Service Date/Time: Saturday, October 29, 2016 00:49 - CONCLUSION: 1. Mildly cirrhotic appearing liver. 2. Evidence of chronic pancreatitis. 3. Status post cholecystectomy. Bobby Estes MD Objective Remarks GENERAL: This is a frail elderly lady in mild distress SKIN: No rashes, warm and dry HEAD: Atraumatic. Normocephalic. EYES: Pupils equal round and reactive. Extraocular motions intact. No scleral icterus. ENT: Nose without bleeding, or drainage, Airway patent. NECK: Trachea midline. Supple CARDIOVASCULAR: Tachycardic without murmurs, gallops, or rubs. RESPIRATORY: Fair air entry bilaterally. No wheezes, rales, or rhonchi. GASTROINTESTINAL: Abdomen soft, tender in the epigastric area, nondistended. Decreased bowel sounds MUSCULOSKELETAL: Extremities without clubbing, cyanosis, or edema. Pedal pulses appreciated NEUROLOGICAL: Awake and alert. Moves all extremity. Normal speech.no focal neurological deficit PSYCH: Flattened affect. Medications and IVs Current Medications Medications (Trade) Dose Ordered Sig/Diego Route Start Time Stop Time Status Last Admin Sodium Chloride 2 ml 2 ml UNSCH PRN IV FLUSH 10/29/16 00:15 10/29/16 06:48 Ciprofloxacin/ Dextrose 200 ml @ 200 mls/hr Q12H IV 10/29/16 07:00 11/01/16 06:18 (Flagyl 500 Mg Inj) 100 ml @ 100 mls/hr Q8H IV 10/29/16 08:00 11/01/16 08:22 (NS Flush) 2 ml UNSCH PRN IV FLUSH 10/29/16 06:15 (NS Flush) 2 ml BID IV FLUSH 10/29/16 09:00 11/01/16 08:21 (Zofran Inj) 4 mg Q6H PRN IVP 10/29/16 06:15 11/01/16 10:15 (Tylenol) 650 mg Q6H PRN PO 10/29/16 06:15 (Dilaudid Pf Inj) 0.5 mg Q3H PRN IV 10/29/16 06:15 11/01/16 13:37 11/01/16 13:22 (Roxicodone) 5 mg Q4H PRN PO 10/29/16 06:15 10/30/16 05:16 (Celeste-Colace) 1 tab BID PO 10/29/16 09:00 11/01/16 08:21 (Milk Of Magnesia Liq) 30 ml Q12H PRN PO 10/29/16 06:15 (Senokot) 17.2 mg Q12H PRN PO 10/29/16 06:15 (Dulcolax Supp) 10 mg DAILY PRN RECTAL 10/29/16 06:15 (Lactulose Liq) 30 ml DAILY PRN PO 10/29/16 06:15 (Xanax) 0.5 mg Q6H PRN PO 10/29/16 06:15 10/30/16 23:20 (Heparin Inj) 5,000 units Q8HR SQ 10/29/16 22:00 11/01/16 12:36 (D50w (Vial) Inj) 25 ml UNSCH PRN IV PUSH 10/30/16 13:15 (Glucagon Inj) 1 mg UNSCH PRN OTHER 10/30/16 13:15 (Protonix Inj) 40 mg Q24H IV PUSH 10/31/16 11:00 11/01/16 10:15 (Vasotec Inj) 2.5 mg Q6H PRN IV PUSH 10/31/16 21:00 10/31/16 22:36 Levothyroxine Sodium 125 mcg 125 mcg DAILY@06 PO 11/01/16 14:00 (D5W-1/2 NS 1000 ml Inj) 1,000 ml @ 125 mls/hr Q8H IV 11/01/16 13:45 (Aspirin Chew) 81 mg DAILY CHEW 11/01/16 14:00 A/P Assessment and Plan Pancreatitis/ Colitis Lipase and AST elevated. Pancreatitis noted on CT abdomen. Pt also with leukocytosis. She was made NPO and started on IVFs. GI consult appreciated. MRCP showed: No acute pancreatitis or other acute inflammatory changes are seen ; Mild chronic pancreatitis changes noted; Previous cholecystectomy with presumably post CCK reservoir type prominence of the common bile duct; No stone or perceptible mass; There is no pancreatic duct dilatation. - IVFs. - clear liquid diet. - follow up with GI. Work-up in progress. - pain control with a bowel regimen. The pt has a history of opiate abuse so will be cautious. - continue IV Cipro and Flagyl. - stool cultures. UTI Culture growing e coli. - continue Cipro. Hyperthyroidism The pt is on levothyroxine. - reduce home dose to 100 mcg daily and follow-up as outpt. Hypertensive urgency Blood pressure exacerbated by pain. Also she was not on her home medication. - Resume atenolol. - Vasotec as needed. - Pain control. Constipation The patient had diarrhea but now has been having constipation. - Continue bowel regimen and increase as needed. DVT prophylaxis: SCD and heparin Bobby Nick DO Nov 01, 2016 13:54
[2016-11-01] MEDS ORDERED: LEVOTHYROXINE SODIUM 125 MCG TAB PO SCH (14:00)
--- NOTE | 2016-11-01 15:33 | HHI.GIFU ---
Subjective Remarks Resting in bed. Appears much more comfortable today. Mild nausea. Pain has improved. States she is feeling much better today. (Stefani Salamanca) Objective Vitals I&O Vital Signs Date Time Temp Pulse Resp B/P Pulse Ox O2 Delivery O2 Flow Rate FiO2 11/01/16 12:00 98.0 96 18 144/88 93 11/01/16 08:00 97.9 93 18 140/80 94 11/01/16 04:10 98.1 100 18 178/84 93 11/01/16 00:10 98.9 108 18 183/91 92 10/31/16 20:05 98.0 115 18 189/88 92 10/31/16 18:41 Room Air 10/31/16 16:30 96.1 108 20 192/90 93 I/O 10/31/16 10/31/16 10/31/16 11/01/16 11/01/16 11/01/16 07:00 15:00 23:00 07:00 15:00 23:00 Intake Total 0 ml 2549 ml 1425 ml Balance 0 ml 2549 ml 1425 ml Intake Oral 0 ml IV Total 2549 ml 1425 ml # Voids 1 5 2 2 # Bowel Movements 0 0 0 0 Laboratory Laboratory Tests Test 11/01/16 05:48 White Blood Count 11.7 Red Blood Count 3.91 Hemoglobin 12.3 Hematocrit 38.5 Mean Corpuscular Volume 98.5 Mean Corpuscular Hemoglobin 31.5 Mean Corpuscular Hemoglobin 32.0 Concent Red Cell Distribution Width 14.5 Platelet Count 261 Mean Platelet Volume 9.2 Neutrophils (%) (Auto) 51.7 Lymphocytes (%) (Auto) 29.8 Monocytes (%) (Auto) 16.2 Eosinophils (%) (Auto) 1.0 Basophils (%) (Auto) 1.3 Neutrophils # (Auto) 6.0 Lymphocytes # (Auto) 3.5 Monocytes # (Auto) 1.9 Eosinophils # (Auto) 0.1 Basophils # (Auto) 0.2 CBC Comment AUTO DIFF Differential Comment AUTO DIFF CONFIRMED Platelet Estimate NORMAL Platelet Morphology Comment ENLARGED Sodium Level 143 Potassium Level 3.8 Chloride Level 112 Carbon Dioxide Level 20.6 Anion Gap 10 Blood Urea Nitrogen 4 Creatinine 0.60 Estimat Glomerular Filtration 96 Rate Random Glucose 91 Calcium Level 8.7 Total Bilirubin 0.5 Aspartate Amino Transf 50 (AST/SGOT) Alanine Aminotransferase 49 (ALT/SGPT) Alkaline Phosphatase 106 Total Protein 7.0 Albumin 3.1 Lipase 336 Date/Time Procedure Status Source Growth 10/29/16 00:30 Urine Culture - Final Complete Urine Clean Catch Escherichia Coli Imaging Last Impressions Skull X-Ray 10/31/16 0000 Signed Impressions: Service Date/Time: Monday, October 31, 2016 17:57 - CONCLUSION: No contraindications to MRI demonstrated. Patient has had previous craniotomy. Dillon Willett MD Cholangiopancreatography MRI 10/31/16 0000 Signed Impressions: Service Date/Time: Monday, October 31, 2016 18:27 - CONCLUSION: 1. No acute pancreatitis or other acute inflammatory changes are seen. Mild chronic pancreatitis changes again noted. 2. Previous cholecystectomy with presumably post CCK reservoir type prominence of the common bile duct. No stone or perceptible mass. There is no pancreatic duct dilatation. Dillon Willett MD Chest X-Ray 10/31/16 0000 Signed Impressions: Service Date/Time: Monday, October 31, 2016 17:55 - CONCLUSION: Bibasilar atelectasis. No contraindications to MRI demonstrated. Dillon Willett MD Abdomen/Pelvis CT 10/29/16 0000 Signed Impressions: Service Date/Time: Saturday, October 29, 2016 00:49 - CONCLUSION: 1. Mildly cirrhotic appearing liver. 2. Evidence of chronic pancreatitis. 3. Status post cholecystectomy. Bobby Estes MD Physical Exam HEENT: Normocephalic; atraumatic; no jaundice. CHEST: CTA CARDIAC: RRR ABDOMEN: Soft, nondistended, mild epigastric/LUQ tenderness; no hepatosplenomegaly; bowel sounds are present in all four quadrants. EXTREMITIES: No clubbing, cyanosis, or edema. SKIN: Normal; no rash; no jaundice. GEOTHERMAL SYSTEM INSTALLER: No focal deficits; alert and oriented times three. (Stefani Salamanca) Assessment and Plan Plan ASSESSMENT: - Acute pancreatitis with evidence of chronic pancreatitis on CT scan. Denies any known hx of pancreatitis. Denies any new medications. Denies any past or current ETOH use. Denies any autoimmune issues. Denies any family hx of pancreatitis. Abdomen/Pelvis CT (10/29/16)----> 1. Mildly cirrhotic appearing liver. 2. Evidence of chronic pancreatitis. 3. Status post cholecystectomy. Looking at her meds, she is on Atorvastatin and takes Aleve, both Class III meds for drug induced acute pancreatitis, although neither one of these new. She is s/p cholecystectomy. Lipase was 1181 on admission, today is 336. triglycerides are 249. The etiology of her pancreatitis is unclear. MRCP (10/31/16)----> 1. No acute pancreatitis or other acute inflammatory changes are seen. Mild chronic pancreatitis changes again noted. 2. Previous cholecystectomy with presumably post CCK reservoir type prominence of the common bile duct. No stone or perceptible mass. There is no pancreatic duct dilatation. IVF. NPO. PPI. Clinically, feeling much better today. - N/V/D, Abdominal pain. Likely related to pancreatitis, although the etiology is unclear. Stool studies pending, no further stools. N/V/Pain improved. Flagyl, Cipro - Abnormal imaging with mild cirrhosis on CT scan. Denies any hx of liver disease in self or family members. Hepatitis panel negative, ARVIN pending, AMA pending, ASMA negative, Iron Saturation 64.5, Ferritin 223, Alpha 1 Antitrypsin 140, Ceruloplasmin pending, AFP 3.1. - Hyperlipidemia. On atorvastatin. Triglycerides 249, not really high enough to explain her pancreatitis. - Leukocytosis. WBC. 11.7. - UTI, FIGUEROA. Cipro. - Hypothyroidism with low TSH. - Hx SBO one year ago, requiring two "complicated surgeries" PLAN: - Clear liquids- advance in am if tolerates - IVF - PPI - IgG 4 level - Await ARVIN, ASMA, AMA, Ceruloplasmin - Stool studies if diarrhea - Supportive care - Further recommendations to follow based on results of above - Pt seen and examined by Dr. Cobos and myself and this note is written on his behalf (Stefani Salamanca) Physician Comments Seen and examined with DIRECTOR OF STATE, feeling better. Etiology of pancreatitis unclear at this time. (Morena Cobos MD) Stefani Salamanca Nov 01, 2016 15:33 Morena Cobos MD Nov 02, 2016 13:05
[2016-11-01] MEDS: DEXT 5%-NACL 0.45% 1000 ML INJ 1,000 ML IV SCH ×2 (15:48→21:45)
[2016-11-01] MEDS: LEVOTHYROXINE SODIUM 100 MCG TAB PO SCH (15:53)
[2016-11-01] MEDS: ATENOLOL 50 MG TAB PO SCH (15:53)
[2016-11-01] MEDS: ASPIRIN 81 MG CHEW TAB CHEW SCH (15:53)
[2016-11-01 16:00] VITALS: BP 168/98; PULSE 101; RESP 20; TEMP 97.5; O2SAT 93
[2016-11-01 19:45] VITALS: BP 173/85; PULSE 75; RESP 16; TEMP 97.4; O2SAT 91
[2016-11-01] MEDS: ENALAPRILAT 2.5 MG/2 ML VIAL IV PUSH PRN (20:44)
[2016-11-01] MEDS: ALPRAZolam 0.5 MG TAB PO PRN (22:07)
[2016-11-02 01:15] VITALS: BP 149/86; PULSE 81; RESP 16; TEMP 97.9; O2SAT 92
[2016-11-02 04:25] VITALS: BP 174/90; PULSE 85; RESP 17; TEMP 98.1; O2SAT 96
[2016-11-02] MEDS: CIPROFLOXACIN 400 MG PREMIX 200 ML IV SCH ×2 (06:23→18:48)
[2016-11-02] MEDS: ENALAPRILAT 2.5 MG/2 ML VIAL IV PUSH PRN (06:26)
[2016-11-02] MEDS: LEVOTHYROXINE SODIUM 100 MCG TAB PO SCH (06:26)
[2016-11-02] MEDS: HEPARIN SODIUM - SQ 10,000 UNITS/ML VIAL SQ SCH ×3 (06:26→21:51)
[2016-11-02] MEDS: ONDANSETRON HCL 4 MG/2 ML VIAL IVP PRN ×2 (06:26→17:49)
[2016-11-02] MEDS: HYDROmorphone HCL PF 1 MG/ML VIAL IV PRN ×3 (06:34→22:01)
[2016-11-02] MEDS: INSULIN ASPART SUPPLEMENTAL SCALE SQ SCH ×4 (07:00→20:20)
[2016-11-02 07:26] LABS: MEAN CELL VOLUME 98.3 FL (80.0-100.0); MEAN CORPUSCULAR HEMOGLOBIN 31.7 PG (27.0-34.0); MEAN CORPUSCULAR HGB CONC 32.3 % (32.0-36.0); PLATELET COUNT 261 TH/MM3 (150-450); RED BLOOD COUNT 3.36 MIL/MM3 (4.00-5.30); RED CELL DISTRIBUTION WIDTH 14.1 % (11.6-17.2); REVIEW FLAG FINAL; WHITE BLOOD COUNT 13.4 TH/MM3 (4.0-11.0)
[2016-11-02 07:34] LABS: BICARBONATE 21.3 MEQ/L (21.0-32.0); MAGNESIUM 1.4 MG/DL (1.5-2.5); POTASSIUM 3.2 MEQ/L (3.5-5.1)
[2016-11-02 08:00] VITALS: BP 158/83; PULSE 91; RESP 19; TEMP 98.7; O2SAT 94
[2016-11-02] MEDS: ASPIRIN 81 MG CHEW TAB CHEW SCH (08:53)
[2016-11-02] MEDS: DOCUSATE SODIUM 50 MG/SENNA 8.6 MG TAB PO SCH ×2 (08:53→21:00)
[2016-11-02] MEDS: ATENOLOL 50 MG TAB PO SCH (08:53)
[2016-11-02] MEDS: metroNIDAZOLE 500 MG INJ 100 ML IV SCH ×2 (08:54→17:08)
[2016-11-02] MEDS: SODIUM CHLORIDE 0.9% FLUSH 10 ML FLUSH IV FLUSH SCH ×2 (08:54→20:20)
[2016-11-02] MEDS: PANTOPRAZOLE SODIUM 40 MG VIAL IV PUSH SCH (09:01)
[2016-11-02] MEDS ORDERED: BISACODYL 10 MG SUPP RECTAL ONE (11:15)
[2016-11-02] MEDS: POLYETHYLENE GLYCOL 17 GM PKG PO SCH (11:54)
[2016-11-02 12:00] VITALS: BP 144/84; PULSE 81; RESP 18; TEMP 99.1; O2SAT 97
[2016-11-02] MEDS: DEXT 5%-NACL 0.45% 1000 ML INJ 1,000 ML IV SCH ×3 (13:45→22:12)
[2016-11-02] MEDS ORDERED: SODIUM PHOSPHATE INJ 30 MMOL in SODIUM CHLOR 0.9% 250 ML INJ 250 ML IV ONE (15:00)
[2016-11-02] MEDS: MAGNESIUM SULFATE 1 GM PREMIX 100 ML IV SCH ×2 (15:10→18:57)
[2016-11-02] MEDS: POTASSIUM CHLOR 20 MEQ PREMIX 100 ML IV SCH ×2 (15:15→22:07)
--- NOTE | 2016-11-02 15:16 | HHI.GIFU ---
Subjective Remarks Pt OOB trying to get aide to help her dress b/c she is "leaving at 5, my son is coming to take me to [facility]." Denies abd pain, n/v. She says she does not want to eat the food here. (Kendra De La Rosa) Objective Vitals I&O Vital Signs Date Time Temp Pulse Resp B/P Pulse Ox O2 Delivery O2 Flow Rate FiO2 11/02/16 12:00 99.1 81 18 144/84 97 11/02/16 08:00 98.7 91 19 158/83 94 11/02/16 04:25 98.1 85 17 174/90 96 11/02/16 01:15 97.9 81 16 149/86 92 11/01/16 19:45 97.4 75 16 173/85 91 11/01/16 18:58 Room Air 11/01/16 16:00 97.5 101 20 168/98 93 I/O 11/01/16 11/01/16 11/01/16 11/02/16 11/02/16 11/02/16 07:00 15:00 23:00 07:00 15:00 23:00 Intake Total 1425 ml 2288 ml 1605 ml 1935 ml Balance 1425 ml 2288 ml 1605 ml 1935 ml Intake Oral 980 ml 360 ml 240 ml IV Total 1425 ml 1308 ml 1245 ml 1695 ml # Voids 2 4 4 2 # Bowel Movements 0 0 0 0 Laboratory Laboratory Tests Test 11/02/16 06:21 White Blood Count 13.4 Red Blood Count 3.36 Hemoglobin 10.7 Hematocrit 33.0 Mean Corpuscular Volume 98.3 Mean Corpuscular Hemoglobin 31.7 Mean Corpuscular Hemoglobin 32.3 Concent Red Cell Distribution Width 14.1 Platelet Count 261 Mean Platelet Volume 8.9 Sodium Level 139 Potassium Level 3.2 Chloride Level 108 Carbon Dioxide Level 21.3 Anion Gap 10 Blood Urea Nitrogen 3 Creatinine 0.57 Estimat Glomerular Filtration 102 Rate Random Glucose 126 Calcium Level 8.0 Phosphorus Level 1.8 Magnesium Level 1.4 Date/Time Procedure Status Source Growth 10/29/16 00:30 Urine Culture - Final Complete Urine Clean Catch Escherichia Coli Imaging Last Impressions Skull X-Ray 10/31/16 0000 Signed Impressions: Service Date/Time: Monday, October 31, 2016 17:57 - CONCLUSION: No contraindications to MRI demonstrated. Patient has had previous craniotomy. Dillon Willett MD Cholangiopancreatography MRI 10/31/16 0000 Signed Impressions: Service Date/Time: Monday, October 31, 2016 18:27 - CONCLUSION: 1. No acute pancreatitis or other acute inflammatory changes are seen. Mild chronic pancreatitis changes again noted. 2. Previous cholecystectomy with presumably post CCK reservoir type prominence of the common bile duct. No stone or perceptible mass. There is no pancreatic duct dilatation. Dillon Willett MD Chest X-Ray 10/31/16 0000 Signed Impressions: Service Date/Time: Monday, October 31, 2016 17:55 - CONCLUSION: Bibasilar atelectasis. No contraindications to MRI demonstrated. Dillon Willett MD Abdomen/Pelvis CT 10/29/16 0000 Signed Impressions: Service Date/Time: Saturday, October 29, 2016 00:49 - CONCLUSION: 1. Mildly cirrhotic appearing liver. 2. Evidence of chronic pancreatitis. 3. Status post cholecystectomy. Bobby Estes MD Physical Exam HEENT: Normocephalic; atraumatic; no jaundice. CHEST: CTA CARDIAC: RRR ABDOMEN: Soft, nondistended, nontender; no hepatosplenomegaly; bowel sounds are present in all four quadrants. EXTREMITIES: No clubbing, cyanosis, or edema. SKIN: Normal; no rash; no jaundice. LIBRARY DIRECTOR: alert but seems confused and not sure if this is baseline (Kendra De La Rosa [facility]) Assessment and Plan Plan ASSESSMENT: - Acute pancreatitis with evidence of chronic pancreatitis on CT scan. Denies any known hx of pancreatitis. Denies any new medications. Denies any past or current ETOH use. Denies any autoimmune issues. Denies any family hx of pancreatitis. Abdomen/Pelvis CT (10/29/16)----> 1. Mildly cirrhotic appearing liver. 2. Evidence of chronic pancreatitis. 3. Status post cholecystectomy. Looking at her meds, she is on Atorvastatin and takes Aleve, both Class III meds for drug induced acute pancreatitis, although neither one of these new. She is s/p cholecystectomy. Lipase was 1181 on admission, today is 336. triglycerides are 249. The etiology of her pancreatitis is unclear. MRCP (10/31/16)----> 1. No acute pancreatitis or other acute inflammatory changes are seen. Mild chronic pancreatitis changes again noted. 2. Previous cholecystectomy with presumably post CCK reservoir type prominence of the common bile duct. No stone or perceptible mass. There is no pancreatic duct dilatation. IVF. NPO. PPI. Clinically, feeling much better today. - N/V/D, Abdominal pain. Likely related to pancreatitis, although the etiology is unclear. Stool studies pending, no further stools. N/V/Pain improved. Flagyl, Cipro - Abnormal imaging with mild cirrhosis on CT scan. Denies any hx of liver disease in self or family members. Hepatitis panel negative, ARVIN pending, AMA pending, ASMA negative, Iron Saturation 64.5, Ferritin 223, Alpha 1 Antitrypsin 140, Ceruloplasmin pending, AFP 3.1. - Hyperlipidemia. On atorvastatin. Triglycerides 249, not really high enough to explain her pancreatitis. - Leukocytosis. WBC. 11.7. - UTI, FIGUEROA. Cipro. - Hypothyroidism with low TSH. - Hx SBO one year ago, requiring two "complicated surgeries" PLAN: - full liquids - IVF - PPI - await IgG 4 level - Await ARVIN, ASMA, AMA, Ceruloplasmin - Stool studies if diarrhea - Supportive care - Further recommendations to follow based on results of above - Pt seen and examined by Dr. Cobos and myself and this note is written on his behalf (Kendra De La Rosa) Physician Comments Seen and examined with ANIYAH, doing better. Wanting to go home today. Can dc home with gi fu in 02 weeks please. Thank you (Morena Cobos MD) Kendra De La Rosa Nov 02, 2016 15:15 Morena Cobos MD Nov 02, 2016 15:46
--- NOTE | 2016-11-02 15:46 | HHI.PR ---
Subjective Remarks The patient was anxious to go home. She became teary-eyed when she was told she should stay another night. The patient has been tolerating her diet. She has had a bowel movement. Discussed with her son on the phone. Also discussed with nursing at the bedside. Objective Vitals Vital Signs Date Time Temp Pulse Resp B/P Pulse Ox O2 Delivery O2 Flow Rate FiO2 11/02/16 12:00 99.1 81 18 144/84 97 11/02/16 08:00 98.7 91 19 158/83 94 11/02/16 04:25 98.1 85 17 174/90 96 11/02/16 01:15 97.9 81 16 149/86 92 11/01/16 19:45 97.4 75 16 173/85 91 11/01/16 18:58 Room Air 11/01/16 16:00 97.5 101 20 168/98 93 I/O 11/01/16 11/01/16 11/01/16 11/02/16 11/02/16 11/02/16 07:00 15:00 23:00 07:00 15:00 23:00 Intake Total 1425 ml 2288 ml 1605 ml 1935 ml Balance 1425 ml 2288 ml 1605 ml 1935 ml Intake Oral 980 ml 360 ml 240 ml IV Total 1425 ml 1308 ml 1245 ml 1695 ml # Voids 2 4 4 2 # Bowel Movements 0 0 0 0 Result Diagram: 11/02/16 0621 11/02/16 0621 Imaging Last Impressions Skull X-Ray 10/31/16 0000 Signed Impressions: Service Date/Time: Monday, October 31, 2016 17:57 - CONCLUSION: No contraindications to MRI demonstrated. Patient has had previous craniotomy. Dillon Willett MD Cholangiopancreatography MRI 10/31/16 0000 Signed Impressions: Service Date/Time: Monday, October 31, 2016 18:27 - CONCLUSION: 1. No acute pancreatitis or other acute inflammatory changes are seen. Mild chronic pancreatitis changes again noted. 2. Previous cholecystectomy with presumably post CCK reservoir type prominence of the common bile duct. No stone or perceptible mass. There is no pancreatic duct dilatation. Dillon Willett MD Chest X-Ray 10/31/16 0000 Signed Impressions: Service Date/Time: Monday, October 31, 2016 17:55 - CONCLUSION: Bibasilar atelectasis. No contraindications to MRI demonstrated. Dillon Willett MD Abdomen/Pelvis CT 10/29/16 0000 Signed Impressions: Service Date/Time: Saturday, October 29, 2016 00:49 - CONCLUSION: 1. Mildly cirrhotic appearing liver. 2. Evidence of chronic pancreatitis. 3. Status post cholecystectomy. Bobby Estes MD Objective Remarks GENERAL: This is a frail elderly lady in NAD SKIN: No rashes, warm and dry HEAD: Atraumatic. Normocephalic. EYES: Pupils equal round and reactive. Extraocular motions intact. No scleral icterus. ENT: Nose without bleeding, or drainage, Airway patent. NECK: Trachea midline. Supple CARDIOVASCULAR: RRR without murmurs, gallops, or rubs. RESPIRATORY: Fair air entry bilaterally. No wheezes, rales, or rhonchi. GASTROINTESTINAL: Abdomen soft, nontender, nondistended. Decreased bowel sounds MUSCULOSKELETAL: Extremities without clubbing, cyanosis, or edema. Pedal pulses appreciated NEUROLOGICAL: Awake and alert. Moves all extremity. Normal speech.no focal neurological deficit PSYCH: Anxious. Medications and IVs Current Medications Medications (Trade) Dose Ordered Sig/Diego Route Start Time Stop Time Status Last Admin Sodium Chloride 2 ml 2 ml UNSCH PRN IV FLUSH 10/29/16 00:15 10/29/16 06:48 Ciprofloxacin/ Dextrose 200 ml @ 200 mls/hr Q12H IV 10/29/16 07:00 11/02/16 06:23 (Flagyl 500 Mg Inj) 100 ml @ 100 mls/hr Q8H IV 10/29/16 08:00 11/02/16 08:54 (NS Flush) 2 ml UNSCH PRN IV FLUSH 10/29/16 06:15 (NS Flush) 2 ml BID IV FLUSH 10/29/16 09:00 11/02/16 08:54 (Zofran Inj) 4 mg Q6H PRN IVP 10/29/16 06:15 11/02/16 06:26 (Tylenol) 650 mg Q6H PRN PO 10/29/16 06:15 (Roxicodone) 5 mg Q4H PRN PO 10/29/16 06:15 11/02/16 03:52 (Celeste-Colace) 1 tab BID PO 10/29/16 09:00 11/02/16 08:53 (Milk Of Magnesia Liq) 30 ml Q12H PRN PO 10/29/16 06:15 (Senokot) 17.2 mg Q12H PRN PO 10/29/16 06:15 (Dulcolax Supp) 10 mg DAILY PRN RECTAL 10/29/16 06:15 (Lactulose Liq) 30 ml DAILY PRN PO 10/29/16 06:15 (Xanax) 0.5 mg Q6H PRN PO 10/29/16 06:15 11/01/16 22:07 (Heparin Inj) 5,000 units Q8HR SQ 10/29/16 22:00 11/02/16 15:10 (D50w (Vial) Inj) 25 ml UNSCH PRN IV PUSH 10/30/16 13:15 (Glucagon Inj) 1 mg UNSCH PRN OTHER 10/30/16 13:15 (Protonix Inj) 40 mg Q24H IV PUSH 10/31/16 11:00 11/02/16 09:01 Enalaprilat 2.5 mg 2.5 mg Q6H PRN IV PUSH 10/31/16 21:00 11/02/16 06:26 (D5W-1/2 NS 1000 ml Inj) 1,000 ml @ 125 mls/hr Q8H IV 11/01/16 13:45 11/01/16 21:45 (Aspirin Chew) 81 mg DAILY CHEW 11/01/16 14:00 11/02/16 08:53 (Dilaudid Pf Inj) 0.5 mg Q4H PRN IV 11/01/16 17:00 11/02/16 06:34 (Synthroid) 100 mcg DAILY@06 PO 11/01/16 14:00 11/02/16 06:26 (Tenormin) 50 mg DAILY PO 11/01/16 14:00 11/02/16 08:53 Polyethylene Glycol 17 gm 17 gm DAILY PO 11/02/16 11:15 11/02/16 11:54 Sodium Phosphate 30 mmol/Sodium Chloride 260 ml @ 43.333 mls/ hr ONCE ONCE IV 11/02/16 15:00 11/02/16 20:59 (KCl 20 Meq Premix Inj) 100 ml @ 50 mls/hr Q2H IV 11/02/16 13:15 11/02/16 17:14 A/P Assessment and Plan Pancreatitis/ Colitis Lipase and AST elevated. Pancreatitis noted on CT abdomen. Pt also with leukocytosis. She was made NPO and started on IVFs. GI consult appreciated. MRCP showed: No acute pancreatitis or other acute inflammatory changes are seen ; Mild chronic pancreatitis changes noted; Previous cholecystectomy with presumably post CCK reservoir type prominence of the common bile duct; No stone or perceptible mass; There is no pancreatic duct dilatation. Improved. - IVFs. - full liquid diet. - follow up with GI. Work-up in progress. - pain control with a bowel regimen. The pt has a history of opiate abuse so will be cautious. - continue IV Cipro and Flagyl. Convert to PO on discharge. - stool cultures. UTI Culture growing e coli. - continue Cipro. Hyperthyroidism The pt is on levothyroxine. - reduce home dose to 100 mcg daily and follow-up as outpt. Hypertensive urgency Blood pressure exacerbated by pain. Also she was not on her home medication. Improved. - Resume atenolol. - Vasotec as needed. - Pain control. Constipation The patient had diarrhea but now has been having constipation. - Continue bowel regimen and increase as needed. Resolved. Hypokalemia/ hypomagnesemia/ hypophosphatemia Secondary to decreased by mouth intake. - Replete IV and monitor. DVT prophylaxis: SCD and heparin Discharge Planning Anticipate discharge home in the morning. Bobby Nick DO Nov 02, 2016 15:46
[2016-11-02 16:00] VITALS: BP 159/92; PULSE 83; RESP 18; TEMP 98.8; O2SAT 100
[2016-11-02 20:05] VITALS: BP 151/76; PULSE 86; RESP 18; TEMP 97.2; O2SAT 92
[2016-11-03] VITALS (7 sets, daily range): BP systolic 119–181; BP diastolic 70–94; PULSE 76–93; RESP 18–20; TEMP 97.6–99.7; O2SAT 93–98
[2016-11-03] MEDS: metroNIDAZOLE 500 MG INJ 100 ML IV SCH ×3 (00:17→18:25)
[2016-11-03] MEDS: ALPRAZolam 0.5 MG TAB PO PRN ×2 (00:23→22:15)
[2016-11-03] MEDS: DEXT 5%-NACL 0.45% 1000 ML INJ 1,000 ML IV SCH ×2 (05:45→13:45)
[2016-11-03] MEDS: CIPROFLOXACIN 400 MG PREMIX 200 ML IV SCH ×2 (06:16→18:32)
[2016-11-03] MEDS: HEPARIN SODIUM - SQ 10,000 UNITS/ML VIAL SQ SCH ×3 (06:20→22:11)
[2016-11-03] MEDS: LEVOTHYROXINE SODIUM 100 MCG TAB PO SCH (06:20)
[2016-11-03] MEDS: INSULIN ASPART SUPPLEMENTAL SCALE SQ SCH ×4 (06:21→20:34)
[2016-11-03 06:57] LABS: BICARBONATE 22.3 MEQ/L (21.0-32.0); MAGNESIUM 1.7 MG/DL (1.5-2.5); POTASSIUM 3.3 MEQ/L (3.5-5.1)
[2016-11-03 07:08] LABS: HEMATOCRIT 33.1 % (35.0-46.0); MEAN CELL VOLUME 97.4 FL (80.0-100.0); MEAN CORPUSCULAR HEMOGLOBIN 31.9 PG (27.0-34.0); MEAN CORPUSCULAR HGB CONC 32.7 % (32.0-36.0); PLATELET COUNT 263 TH/MM3 (150-450); REVIEW FLAG FINAL; WHITE BLOOD COUNT 16.2 TH/MM3 (4.0-11.0)
[2016-11-03] MEDS: SODIUM CHLORIDE 0.9% FLUSH 10 ML FLUSH IV FLUSH SCH ×2 (09:00→20:29)
[2016-11-03] MEDS: POLYETHYLENE GLYCOL 17 GM PKG PO SCH (09:00)
[2016-11-03] MEDS: DOCUSATE SODIUM 50 MG/SENNA 8.6 MG TAB PO SCH (09:00)
[2016-11-03] MEDS: ASPIRIN 81 MG CHEW TAB CHEW SCH (09:34)
[2016-11-03] MEDS: ATENOLOL 50 MG TAB PO SCH (09:34)
[2016-11-03] MEDS: ONDANSETRON HCL 4 MG/2 ML VIAL IVP PRN ×2 (09:45→18:32)
[2016-11-03] MEDS: HYDROmorphone HCL PF 1 MG/ML VIAL IV PRN ×3 (09:45→20:29)
[2016-11-03] MEDS: PANTOPRAZOLE SODIUM 40 MG VIAL IV PUSH SCH (09:46)
--- NOTE | 2016-11-03 12:59 | HHI.PR ---
Subjective Remarks The pt said her abdominal pain got worse after taking the Miralax. She said she has been having diarrhea again. She needed pain medication. She does not feel ready to go home. Objective Vitals Vital Signs Date Time Temp Pulse Resp B/P Pulse Ox O2 Delivery O2 Flow Rate FiO2 11/03/16 08:00 97.9 92 18 135/81 93 11/03/16 04:10 99.0 76 18 158/87 94 11/03/16 00:10 98.5 78 18 136/78 96 11/02/16 20:05 97.2 86 18 151/76 92 11/02/16 16:00 98.8 83 18 159/92 100 I/O 11/02/16 11/02/16 11/02/16 11/03/16 11/03/16 11/03/16 07:00 15:00 23:00 07:00 15:00 23:00 Intake Total 1935 ml 960 ml 240 ml Balance 1935 ml 960 ml 240 ml Intake Oral 240 ml 960 ml 240 ml IV Total 1695 ml Bladder Scan Volume Amount 412 ml # Voids 2 4 2 # Bowel Movements 0 2 1 Result Diagram: 11/03/16 0632 11/03/16 0632 Imaging Last Impressions Skull X-Ray 10/31/16 0000 Signed Impressions: Service Date/Time: Monday, October 31, 2016 17:57 - CONCLUSION: No contraindications to MRI demonstrated. Patient has had previous craniotomy. Dillon Willett MD Cholangiopancreatography MRI 10/31/16 0000 Signed Impressions: Service Date/Time: Monday, October 31, 2016 18:27 - CONCLUSION: 1. No acute pancreatitis or other acute inflammatory changes are seen. Mild chronic pancreatitis changes again noted. 2. Previous cholecystectomy with presumably post CCK reservoir type prominence of the common bile duct. No stone or perceptible mass. There is no pancreatic duct dilatation. Dillon Willett MD Chest X-Ray 10/31/16 0000 Signed Impressions: Service Date/Time: Monday, October 31, 2016 17:55 - CONCLUSION: Bibasilar atelectasis. No contraindications to MRI demonstrated. Dillon Willett MD Abdomen/Pelvis CT 10/29/16 0000 Signed Impressions: Service Date/Time: Saturday, October 29, 2016 00:49 - CONCLUSION: 1. Mildly cirrhotic appearing liver. 2. Evidence of chronic pancreatitis. 3. Status post cholecystectomy. Bobby Estes MD Objective Remarks GENERAL: This is a frail elderly lady in NAD SKIN: No rashes, warm and dry HEAD: Atraumatic. Normocephalic. EYES: Pupils equal round and reactive. Extraocular motions intact. No scleral icterus. ENT: Nose without bleeding, or drainage, Airway patent. NECK: Trachea midline. Supple CARDIOVASCULAR: RRR without murmurs, gallops, or rubs. RESPIRATORY: Fair air entry bilaterally. No wheezes, rales, or rhonchi. GASTROINTESTINAL: Abdomen soft, tender in the epigastric area, nondistended. MUSCULOSKELETAL: Extremities without clubbing, cyanosis, or edema. Pedal pulses appreciated NEUROLOGICAL: Awake and alert. Moves all extremity. Normal speech.no focal neurological deficit PSYCH: Anxious. Medications and IVs Current Medications Medications (Trade) Dose Ordered Sig/Diego Route Start Time Stop Time Status Last Admin Sodium Chloride 2 ml 2 ml UNSCH PRN IV FLUSH 10/29/16 00:15 10/29/16 06:48 Ciprofloxacin/ Dextrose 200 ml @ 200 mls/hr Q12H IV 10/29/16 07:00 11/03/16 06:16 (Flagyl 500 Mg Inj) 100 ml @ 100 mls/hr Q8H IV 10/29/16 08:00 11/03/16 09:34 (NS Flush) 2 ml UNSCH PRN IV FLUSH 10/29/16 06:15 (NS Flush) 2 ml BID IV FLUSH 10/29/16 09:00 11/02/16 08:54 (Zofran Inj) 4 mg Q6H PRN IVP 10/29/16 06:15 11/03/16 09:45 (Tylenol) 650 mg Q6H PRN PO 10/29/16 06:15 (Roxicodone) 5 mg Q4H PRN PO 10/29/16 06:15 11/02/16 03:52 (Milk Of Magnesia Liq) 30 ml Q12H PRN PO 10/29/16 06:15 (Senokot) 17.2 mg Q12H PRN PO 10/29/16 06:15 (Dulcolax Supp) 10 mg DAILY PRN RECTAL 10/29/16 06:15 (Lactulose Liq) 30 ml DAILY PRN PO 10/29/16 06:15 (Xanax) 0.5 mg Q6H PRN PO 10/29/16 06:15 11/03/16 00:23 (Heparin Inj) 5,000 units Q8HR SQ 10/29/16 22:00 11/03/16 06:20 (D50w (Vial) Inj) 25 ml UNSCH PRN IV PUSH 10/30/16 13:15 (Glucagon Inj) 1 mg UNSCH PRN OTHER 10/30/16 13:15 (Protonix Inj) 40 mg Q24H IV PUSH 10/31/16 11:00 11/03/16 09:46 Enalaprilat 2.5 mg 2.5 mg Q6H PRN IV PUSH 10/31/16 21:00 11/02/16 06:26 (D5W-1/2 NS 1000 ml Inj) 1,000 ml @ 125 mls/hr Q8H IV 11/01/16 13:45 11/02/16 22:12 (Aspirin Chew) 81 mg DAILY CHEW 11/01/16 14:00 11/03/16 09:34 (Dilaudid Pf Inj) 0.5 mg Q4H PRN IV 11/01/16 17:00 11/03/16 09:45 (Synthroid) 100 mcg DAILY@06 PO 11/01/16 14:00 11/03/16 06:20 (Tenormin) 50 mg DAILY PO 11/01/16 14:00 11/03/16 09:34 A/P Assessment and Plan Pancreatitis/ Colitis Lipase and AST elevated. Pancreatitis noted on CT abdomen. Pt also with leukocytosis. She was made NPO and started on IVFs. GI consult appreciated. MRCP showed: No acute pancreatitis or other acute inflammatory changes are seen ; Mild chronic pancreatitis changes noted; Previous cholecystectomy with presumably post CCK reservoir type prominence of the common bile duct; No stone or perceptible mass; There is no pancreatic duct dilatation. Improved. - advance to low residue diet. - follow up with GI in two weeks. Work-up in progress. - pain control with a bowel regimen. The pt has a history of opiate abuse so will be cautious. - continue IV Cipro and Flagyl. Convert to PO on discharge. - stool cultures. UTI Culture growing e coli. - continue Cipro. Hyperthyroidism The pt is on levothyroxine. - reduce home dose to 100 mcg daily and follow-up as outpt. Hypertensive urgency Blood pressure exacerbated by pain. Also she was not on her home medication. Improved. - Resume atenolol. - Vasotec as needed. - Pain control. Constipation The patient had diarrhea but now has been having constipation for days. Resolved with Miralax. - d/c bowel regimen. Hypokalemia/ hypomagnesemia/ hypophosphatemia Secondary to decreased by mouth intake. - Replete IV and monitor. Improved. Replete PO potassium 11/03. DVT prophylaxis: SCD and heparin Discharge Planning Anticipate discharge home in the morning. Bobby Nick DO Nov 03, 2016 12:59
[2016-11-03 13:53] LABS: MITOCHONDRIAL ABS 36.7 U (())
[2016-11-03] MEDS: POTASSIUM CHLORIDE 20 MEQ CONTROLLED RELEASE TAB PO SCH ×2 (14:43→18:26)
[2016-11-04] VITALS (7 sets, daily range): BP systolic 122–167; BP diastolic 66–93; PULSE 82–94; RESP 16–20; TEMP 98.2–99.7; O2SAT 94–96
[2016-11-04] MEDS: metroNIDAZOLE 500 MG INJ 100 ML IV SCH ×4 (00:16→23:30)
[2016-11-04] MEDS: HYDROmorphone HCL PF 1 MG/ML VIAL IV PRN ×3 (00:17→13:40)
[2016-11-04] MEDS: DEXT 5%-NACL 0.45% 1000 ML INJ 1,000 ML IV SCH ×5 (05:45→23:31)
[2016-11-04] MEDS: HEPARIN SODIUM - SQ 10,000 UNITS/ML VIAL SQ SCH ×3 (06:28→21:44)
[2016-11-04] MEDS: CIPROFLOXACIN 400 MG PREMIX 200 ML IV SCH ×2 (06:29→18:33)
[2016-11-04] MEDS: LEVOTHYROXINE SODIUM 100 MCG TAB PO SCH (06:36)
[2016-11-04] MEDS: INSULIN ASPART SUPPLEMENTAL SCALE SQ SCH ×4 (06:42→20:05)
[2016-11-04] MEDS: ONDANSETRON HCL 4 MG/2 ML VIAL IVP PRN (08:36)
[2016-11-04] MEDS: ASPIRIN 81 MG CHEW TAB CHEW SCH (08:37)
[2016-11-04] MEDS: ATENOLOL 50 MG TAB PO SCH (08:37)
[2016-11-04] MEDS: SODIUM CHLORIDE 0.9% FLUSH 10 ML FLUSH IV FLUSH SCH ×2 (08:37→20:05)
[2016-11-04 08:54] LABS: HEMATOCRIT 33.3 % (35.0-46.0); MEAN CELL VOLUME 98.4 FL (80.0-100.0); MEAN CORPUSCULAR HEMOGLOBIN 31.7 PG (27.0-34.0); MEAN CORPUSCULAR HGB CONC 32.3 % (32.0-36.0); PLATELET COUNT 294 TH/MM3 (150-450); RED BLOOD COUNT 3.38 MIL/MM3 (4.00-5.30); RED CELL DISTRIBUTION WIDTH 14.3 % (11.6-17.2); REVIEW FLAG FINAL; WHITE BLOOD COUNT 16.5 TH/MM3 (4.0-11.0)
--- NOTE | 2016-11-04 09:28 | HHI.PR ---
Subjective Remarks The patient has been tolerating the diet but she does still have watery diarrhea. She still has epigastric abdominal pain. She has been ambulating. Objective Vitals Vital Signs Date Time Temp Pulse Resp B/P Pulse Ox O2 Delivery O2 Flow Rate FiO2 11/04/16 04:10 99.0 85 19 137/74 95 11/04/16 00:45 99.6 83 20 122/66 94 11/03/16 22:02 136/76 11/03/16 20:59 16 11/03/16 20:10 99.7 93 20 181/94 94 11/03/16 16:00 98.1 91 18 119/79 97 11/03/16 12:00 97.6 80 18 145/70 98 I/O 11/03/16 11/03/16 11/03/16 11/04/16 11/04/16 11/04/16 07:00 15:00 23:00 07:00 15:00 23:00 Intake Total 240 ml 480 ml 240 ml 987 ml Balance 240 ml 480 ml 240 ml 987 ml Intake Oral 240 ml 480 ml 240 ml 240 ml IV Total 747 ml # Voids 2 4 1 1 # Bowel Movements 1 0 1 0 Result Diagram: 11/04/16 0759 11/03/16 0632 Imaging Last Impressions Skull X-Ray 10/31/16 0000 Signed Impressions: Service Date/Time: Monday, October 31, 2016 17:57 - CONCLUSION: No contraindications to MRI demonstrated. Patient has had previous craniotomy. Dillon Willett MD Cholangiopancreatography MRI 10/31/16 0000 Signed Impressions: Service Date/Time: Monday, October 31, 2016 18:27 - CONCLUSION: 1. No acute pancreatitis or other acute inflammatory changes are seen. Mild chronic pancreatitis changes again noted. 2. Previous cholecystectomy with presumably post CCK reservoir type prominence of the common bile duct. No stone or perceptible mass. There is no pancreatic duct dilatation. Dillon Willett MD Chest X-Ray 10/31/16 0000 Signed Impressions: Service Date/Time: Monday, October 31, 2016 17:55 - CONCLUSION: Bibasilar atelectasis. No contraindications to MRI demonstrated. Dillon Willett MD Abdomen/Pelvis CT 10/29/16 0000 Signed Impressions: Service Date/Time: Saturday, October 29, 2016 00:49 - CONCLUSION: 1. Mildly cirrhotic appearing liver. 2. Evidence of chronic pancreatitis. 3. Status post cholecystectomy. Bobby Estes MD Objective Remarks GENERAL: This is a frail elderly lady in [facility]. SKIN: No rashes, warm and dry. HEAD: Atraumatic. Normocephalic. EYES: Pupils equal round and reactive. Extraocular motions intact. No scleral icterus. ENT: Nose without bleeding, or drainage, Airway patent. NECK: Trachea midline. Supple CARDIOVASCULAR: RRR without murmurs, gallops, or rubs. RESPIRATORY: Fair air entry bilaterally. No wheezes, rales, or rhonchi. GASTROINTESTINAL: Abdomen soft, tender in the epigastric area, nondistended. MUSCULOSKELETAL: Extremities without clubbing, cyanosis, or edema. Pedal pulses appreciated. NEUROLOGICAL: Awake and alert. Moves all extremity. Normal speech. No focal neurological deficit. PSYCH: Mood and affect appropriate. Medications and IVs Current Medications Medications (Trade) Dose Ordered Sig/Diego Route Start Time Stop Time Status Last Admin Ciprofloxacin/ Dextrose 200 ml @ 200 mls/hr Q12H IV 10/29/16 07:00 11/04/16 06:29 (Flagyl 500 Mg Inj) 100 ml @ 100 mls/hr Q8H IV 10/29/16 08:00 11/04/16 08:37 (NS Flush) 2 ml UNSCH PRN IV FLUSH 10/29/16 06:15 (NS Flush) 2 ml BID IV FLUSH 10/29/16 09:00 11/04/16 08:37 (Zofran Inj) 4 mg Q6H PRN IVP 10/29/16 06:15 11/04/16 08:36 (Tylenol) 650 mg Q6H PRN PO 10/29/16 06:15 (Roxicodone) 5 mg Q4H PRN PO 10/29/16 06:15 11/02/16 03:52 (Milk Of Magnesia Liq) 30 ml Q12H PRN PO 10/29/16 06:15 (Senokot) 17.2 mg Q12H PRN PO 10/29/16 06:15 (Dulcolax Supp) 10 mg DAILY PRN RECTAL 10/29/16 06:15 (Lactulose Liq) 30 ml DAILY PRN PO 10/29/16 06:15 (Xanax) 0.5 mg Q6H PRN PO 10/29/16 06:15 11/03/16 22:15 (Heparin Inj) 5,000 units Q8HR SQ 10/29/16 22:00 11/04/16 06:28 (D50w (Vial) Inj) 25 ml UNSCH PRN IV PUSH 10/30/16 13:15 (Glucagon Inj) 1 mg UNSCH PRN OTHER 10/30/16 13:15 (Protonix Inj) 40 mg Q24H IV PUSH 10/31/16 11:00 11/03/16 09:46 Enalaprilat 2.5 mg 2.5 mg Q6H PRN IV PUSH 10/31/16 21:00 11/02/16 06:26 (D5W-1/2 NS 1000 ml Inj) 1,000 ml @ 125 mls/hr Q8H IV 11/01/16 13:45 11/04/16 06:37 (Aspirin Chew) 81 mg DAILY CHEW 11/01/16 14:00 11/04/16 08:37 (Dilaudid Pf Inj) 0.5 mg Q4H PRN IV 11/01/16 17:00 11/04/16 08:36 (Synthroid) 100 mcg DAILY@06 PO 11/01/16 14:00 11/04/16 06:36 (Tenormin) 50 mg DAILY PO 11/01/16 14:00 11/04/16 08:37 A/P Assessment and Plan Pancreatitis/ Colitis Lipase and AST elevated. Pancreatitis noted on CT abdomen. Pt also with leukocytosis. She was made NPO and started on IVFs. GI consult appreciated. MRCP showed: No acute pancreatitis or other acute inflammatory changes are seen ; Mild chronic pancreatitis changes noted; Previous cholecystectomy with presumably post CCK reservoir type prominence of the common bile duct; No stone or perceptible mass; There is no pancreatic duct dilatation. Still with diarrhea. - advance to low residue diet. - follow up with GI in two weeks. Work-up in progress. - pain control with a bowel regimen. The pt has a history of opiate abuse so will be cautious. - continue IV Cipro and Flagyl. Convert to PO on discharge. - stool cultures, c diff PCR requested. UTI Culture growing e coli. - continue Cipro. Hyperthyroidism The pt is on levothyroxine. - reduce home dose to 100 mcg daily and follow-up as outpt. Hypertensive urgency Blood pressure exacerbated by pain. Also she was not on her home medication. Improved. - Resume atenolol. - Vasotec as needed. - Pain control. Hypokalemia/ hypomagnesemia/ hypophosphatemia Secondary to decreased by mouth intake. - Replete and monitor. DVT prophylaxis: SCD and heparin Discharge Planning Anticipate discharge home in 1-2 days Bobby Nick DO Nov 04, 2016 09:28
[2016-11-04 09:29] LABS: BICARBONATE 24.3 MEQ/L (21.0-32.0); MAGNESIUM 1.6 MG/DL (1.5-2.5); POTASSIUM 4.1 MEQ/L (3.5-5.1)
[2016-11-04] MEDS: PANTOPRAZOLE SODIUM 40 MG VIAL IV PUSH SCH (12:09)
[2016-11-04] MEDS: ALPRAZolam 0.5 MG TAB PO PRN (20:05)
[2016-11-04] MEDS ORDERED: CIPROFLOXACIN 500 MG TAB PO ONE (21:00)
[2016-11-05] MEDS ORDERED: metroNIDAZOLE 500 MG TAB PO ONE
[2016-11-05 04:00] VITALS: TEMP 98.6
[2016-11-05] MEDS: LEVOTHYROXINE SODIUM 100 MCG TAB PO SCH (05:18)
[2016-11-05] MEDS: HEPARIN SODIUM - SQ 10,000 UNITS/ML VIAL SQ SCH (05:20)
[2016-11-05] MEDS: INSULIN ASPART SUPPLEMENTAL SCALE SQ SCH (05:59)
[2016-11-05 08:00] VITALS: BP 131/78; PULSE 82; RESP 18; TEMP 98.5; O2SAT 95
[2016-11-05] MEDS: metroNIDAZOLE 500 MG INJ 100 ML IV SCH (08:00)
[2016-11-05] MEDS: SODIUM CHLORIDE 0.9% FLUSH 10 ML FLUSH IV FLUSH SCH (08:26)
[2016-11-05] MEDS: ASPIRIN 81 MG CHEW TAB CHEW SCH (08:26)
[2016-11-05] MEDS: ATENOLOL 50 MG TAB PO SCH (08:26)
[2016-11-05] MEDS ORDERED: CIPROFLOXACIN 400 MG PREMIX 200 ML IV SCH (09:00)
[2016-11-05] MEDS ORDERED: metroNIDAZOLE 500 MG TAB PO SCH (10:00)
[2016-11-05] MEDS ORDERED: CIPROFLOXACIN 500 MG TAB PO SCH (10:00)
[2016-11-05] MEDS ORDERED: CIPR-9 PO (10:30)
[2016-11-05] MEDS ORDERED: METR-1 PO (10:30)
[2016-11-05] MEDS ORDERED: LEVO.1 PO (10:30)
[2016-11-05] MEDS ORDERED: PANT40TA3 PO (10:30)
[2016-11-05] MEDS ORDERED: OXYC-392 PO (10:30)
--- NOTE | 2016-11-05 10:34 | HHI.DCPOC ---
Discharge Care Plan Diagnosis: (1) Abdominal pain (2) Nausea and vomiting (3) Pancreatitis (4) Leukocytosis Goals to Promote Your Health * To prevent worsening of your condition and complications * To maintain your health at the optimal level Directions to Meet Your Goals Take your medications as prescribed Follow your dietary instruction Follow activity as directed Keep your appointments as scheduled Take your immunizations and boosters as scheduled If your symptoms worsen call your PCP, if no PCP go to Urgent Care Center or Emergency Room Smoking is Dangerous to Your Health. Avoid second hand smoke Call the 24-hour hour crisis hotline for domestic abuse at Bobby Nick DO Nov 05, 2016 10:34
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
[2016-11-06 23:52] LABS: IGG SUBCLASSES 4 20.8 mg/dL (4-86)
== END 2016-11-05 11:55 | disposition home or self-care (01) | DRG 439 ==
LOC: NEPE 22:52 → NEDA 10-29 06:20 → N06A 10-29 07:18
PROVIDERS: ADMIT Hospitalist; ATTEND Hospitalist
DX: K86.1 Other chronic pancreatitis (principal); N39.0 Urinary tract infection, site not specified; N17.9 Acute kidney failure, unspecified; E87.2 Acidosis; K74.60 Unspecified cirrhosis of liver; E83.42 Hypomagnesemia; B96.20 Unspecified Escherichia coli [E. coli] as the cause of diseases classified elsewhere; E78.5 Hyperlipidemia, unspecified; Z90.49 Acquired absence of other specified parts of digestive tract; I16.0 Hypertensive urgency; E87.6 Hypokalemia; E83.39 Other disorders of phosphorus metabolism; E03.9 Hypothyroidism, unspecified; Z90.81 Acquired absence of spleen; K59.00 Constipation, unspecified
CPT/HCPCS: 70250; 71010; 74176; 74181; 76377; 76937; 80048; 80053; 80061; 80074; 80076; 81001; 82040; 82103; 82105; 82247; 82390; 82728; 82784; 82787; 82948; 83036; 83520; 83540; 83550; 83605; 83690; 83735; 84075; 84100; 84155; 84439; 84443; 84450; 84460; 85007; 85025; 85027; 85610; 85730; 86038; 86256; 86301; 87077; 87086; 87186; 96374; 96375; 96376; C9113; J0696; J0744; J1170; J1644; J2270; J2405; J2765; J3475; J3480; J7030; J7050

== ENCOUNTER 2016-12-16 21:04 | Emergency (ER) | payer OTHER, MEDICAID ==
[~2016-12-16] VITALS: Ht 157.5 cm; Wt 47.5 kg
[~2016-12-16 21:04] MED LIST: ALEVE PO; ALPR.5 PO; ASPI81CH CHEW; ATEN50TA PO; ATOR40TA16 PO; CIPR-9 PO; LEVO.1 PO; METR-1 PO; OXYC-392 PO; PANT40TA3 PO
[2016-12-16 21:10] VITALS: BP 210/139; PULSE 97; RESP 16; TEMP 98.3; O2SAT 97
--- NOTE | 2016-12-16 21:55 | PD ---
Physical Exam Date Seen by Provider: Dec 16, 2016 Time Seen by Provider: 21:53 Narrative 81 yo female here for evaluation of left hip pain. Had hardware there. Went to see PCP who ordered xray and gave her a shot for pain. Has not had xray. Pain is 10/10. Started yesterday. No injuries. Vitals are stable in triage. Awaiting bed placement. Data Data Last Documented VS Vital Signs Date Time Temp Pulse Resp B/P Pulse Ox O2 Delivery O2 Flow Rate FiO2 12/16/16 21:10 98.3 97 16 210/139 97 Room Air [facility] Medical Record Reviewed: Yes Supervised Visit with PRABHA: No Octavio Wilson Dec 16, 2016 21:55
[2016-12-16] MEDS ORDERED: NAPR500T PO (22:19)
[2016-12-16] MEDS ORDERED: SODIUM CHLORIDE 0.9% FLUSH 10 ML FLUSH IV FLUSH PRN (22:45)
[2016-12-16] MEDS ORDERED: ONDANSETRON HCL 4 MG/2 ML VIAL IV PUSH ONE (22:45)
[2016-12-16] MEDS ORDERED: HYDROmorphone HCL PF 1 MG/ML VIAL IVS ONE (22:45)
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
--- NOTE | 2016-12-16 23:34 | RADRPT ---
EXAM DATE/TIME: 12/16/2016 22:53 [facility] COMPARISON: No previous studies available for comparison. INDICATIONS : Left hip pain. ORAL CONTRAST: No oral contrast ingested. RADIATION DOSE: 7.29 CTDIvol (mGy) MEDICAL HISTORY : None SURGICAL HISTORY : Hysterectomy. Bilateral hip ORIF. ENCOUNTER: Initial ACUITY: 1 week PAIN SCALE: 9/10 LOCATION: Left hip TECHNIQUE: Volumetric scanning of the pelvis was performed. Using automated exposure control and adjustment of the mA and/or kV according to patient size, radiation dose was kept as low as reasonably achievable t o obtain optimal diagnostic quality images. DICOM format image data is available electronically for review and comparison. FINDINGS: BOWEL/MESENTERY: The visualized small and large bowel demonstrate no acute abnormality. There is no free fluid. BLADDER: There is no wall thickening or mass. RETROPERITONEUM: There is no aneurysm or lymphadenopathy. REPRODUCTIVE: Within normal limits. INGUINAL: There is no lymphadenopathy or hernia. MUSCULOSKELETAL: Within normal limits for patient age. Both femoral necks have been pinned. Marked degenerative diseas e lower lumbar spine. Extensive subcutaneous calcifications posteriorly. Previous vertebroplasty at L 5 CONCLUSION: Normal examination when accounting for previous surgeries. No acute fracture seen. Multiple injection granulomas bilaterally posteriorly. Igor Mendez MD on December 16, 2016 at 23:29 Board Certified Radiologist. This report was verified electronically.
--- NOTE | 2016-12-16 23:35 | RADRPT ---
EXAM DATE/TIME: 12/16/2016 22:53 [facility] COMPARISON: No previous studies available for comparison. INDICATIONS : Left hip pain. RADIATION DOSE: CTDIvol (mGy) ; Reconstructed from previous dataset, no dose MEDICAL HISTORY : None SURGICAL HISTORY : Hysterectomy. Bilateral hip ORIF. ENCOUNTER: Initial ACUITY: 1 week PAIN SCALE: 9/10 LOCATION: Left hip TECHNIQUE: Volumetric scanning of the hip was performed. Using automated exposure control and adjustment of the mA and/or kV according to patient size, radiation dose was kept as low as reasonably achievable to o btain optimal diagnostic quality images. DICOM format image data is available electronically for rev iew and comparison. FINDINGS: BONES: The patient's had a previous femoral neck pinning with a femoral IM nail. No evidence of fracture. A lignment is within normal limits. JOINTS: No evidence of joint narrowing or effusion. SOFT TISSUES: Muscles, tendons and neurovascular structures are grossly unremarkable. No evidence of mass, organize d fluid collection, or foreign body. CONCLUSION: Previous femoral neck surgery. No evidence of acute fracture or mass Igor Mendez MD on December 16, 2016 at 23:33 Board Certified Radiologist. This report was verified electronically.
[2016-12-16 23:54] LABS: AUTOMATED NEUTROPHIL # 7.6 TH/MM3 (1.8-7.7); BASOPHIL # 0.1 TH/MM3 (0-0.2); BASOPHIL % 0.7 % (0.0-2.0); EOSINOPHIL % 0.1 % (0.0-4.0); HEMATOCRIT 43.5 % (35.0-46.0); LYMPH % 26.4 % (9.0-44.0); LYMPHOCYTE # 2.8 TH/MM3 (1.0-4.8); MEAN CELL VOLUME 100.2 FL (80.0-100.0); MEAN CORPUSCULAR HEMOGLOBIN 32.8 PG (27.0-34.0); MEAN CORPUSCULAR HGB CONC 32.8 % (32.0-36.0); MONO % 1.1 % (0.0-8.0); NEUT % 71.7 % (16.0-70.0); PLATELET COUNT 294 TH/MM3 (150-450); RED BLOOD COUNT 4.35 MIL/MM3 (4.00-5.30); RED CELL DISTRIBUTION WIDTH 14.1 % (11.6-17.2); WHITE BLOOD COUNT 10.6 TH/MM3 (4.0-11.0)
[2016-12-16 23:55] LABS: HEMO FLAGS AUTO DIFF
[2016-12-17 00:21] LABS: ALKALINE PHOSPHATASE 128 U/L (45-117); TOTAL BILIRUBIN ADULT 0.5 MG/DL (0.2-1.0)
[2016-12-17 00:24] LABS: ALT (GPT) 20 U/L (10-53); ANION GAP 10 MEQ/L (5-15); AST (GOT) 30 U/L (15-37); BICARBONATE 20.7 MEQ/L (21.0-32.0); BLOOD UREA NITROGEN 23 MG/DL (7-18); CHLORIDE 105 MEQ/L (98-107); GLOMERULAR FILTRATION RATE 40 ML/MIN (>89); SODIUM (NA) 136 MEQ/L (136-145)
[2016-12-17 00:33] LABS: SCAN/DIFF AUTO DIFF CONFIRMED
[2016-12-17 00:34] LABS: PLATELET ESTIMATE SMEAR NORMAL (NORMAL); PLATELET MORPHOLOGY CLUMPED (NORMAL)
[2016-12-17] MEDS ORDERED: TRAM50TA PO (00:55)
--- NOTE | 2016-12-17 00:57 | PD ---
Physical Exam Date Seen by Provider: Dec 16, 2016 Time Seen by Provider: 23:00 Narrative I, Dr. Velarde, have reviewed the advance practice practitioner's documentation and am in agreement, met with the patient face to face, made the diagnosis, and the medical decision making was done by me. *My assessment and Findings: Patient seen and evaluated with PA, please see PA note for further details. Laboratory Tests Test 12/16/16 12/16/16 23:10 23:45 Mean Corpuscular Volume 100.2 FL (80.0-100.0) Neutrophils (%) (Auto) 71.7 % (16.0-70.0) Platelet Morphology Comment CLUMPED (NORMAL) Carbon Dioxide Level 20.7 MEQ/L (21.0-32.0) Blood Urea Nitrogen 23 MG/DL (7-18) Creatinine 1.27 MG/DL (0.50-1.00) Estimat Glomerular Filtration 40 ML/MIN (>89) Rate Random Glucose 150 MG/DL (74-106) Alkaline Phosphatase 128 U/L (45-117) Total Protein 8.3 GM/DL (6.4-8.2) Last [address] 12/16/16 0000 Signed Impressions: Service Date/Time: Friday, December 16, 2016 22:53 - CONCLUSION: Normal examination when accounting for previous surgeries. No acute fracture seen. Multiple injection granulomas bilaterally posteriorly. Igor Mendez MD Lower Extremity CT 12/16/16 0000 Signed Impressions: Service Date/Time: Friday, December 16, 2016 22:53 - CONCLUSION: Previous femoral neck surgery. No evidence of acute fracture or mass Igor Mendez MD CAT scan did not show any signs of acute processes and hardware appears to be in place. At this point, plan would be to release the patient with follow-up to primary care physician. We will give her symptomatic relief or pain. Return for new issues as needed. The plan was discussed with her and she states understanding. Data Data Last Documented VS Vital Signs Date Time Temp Pulse Resp B/P Pulse Ox O2 Delivery O2 Flow Rate FiO2 12/16/16 21:10 98.3 97 16 210/[address] Hip W/O Contrast (12/16/16 ) Ct Pelvis W/O Iv Contrast (12/16/16 ) Complete Blood Count With Diff (12/16/16 22:34) Comprehensive Metabolic Panel (12/16/16 22:34) Lactic Acid (12/16/16 22:34) Iv Access Insert/Monitor (12/16/16 22:34) Ecg Monitoring (12/16/16 22:34) Oximetry (12/16/16 22:34) Sodium Chloride 0.9% Flush (Ns Flush) (12/16/16 22:45) Hydromorphone Pf Inj (Dilaudid Pf Inj) (12/16/16 22:45) Ondansetron Inj (Zofran Inj) (12/16/16 22:45) Labs Laboratory Tests Test 12/16/16 12/16/16 23:10 23:45 White Blood Count 10.6 TH/MM3 Red Blood Count 4.35 MIL/MM3 Hemoglobin 14.3 GM/DL Hematocrit 43.5 % Mean Corpuscular Volume 100.2 FL Mean Corpuscular Hemoglobin 32.8 PG Mean Corpuscular Hemoglobin 32.8 % Concent Red Cell Distribution Width 14.1 % Platelet Count 294 TH/MM3 Mean Platelet Volume 9.3 FL Neutrophils (%) (Auto) 71.7 % Lymphocytes (%) (Auto) 26.4 % Monocytes (%) (Auto) 1.1 % Eosinophils (%) (Auto) 0.1 % Basophils (%) (Auto) 0.7 % Neutrophils # (Auto) 7.6 TH/MM3 Lymphocytes # (Auto) 2.8 TH/MM3 Monocytes # (Auto) 0.1 TH/MM3 Eosinophils # (Auto) 0.0 TH/MM3 Basophils # (Auto) 0.1 TH/MM3 CBC Comment AUTO DIFF Differential Comment AUTO DIFF CONFIRMED Platelet Estimate NORMAL Platelet Morphology Comment CLUMPED Sodium Level 136 MEQ/L Potassium Level 5.0 MEQ/L Chloride Level 105 MEQ/L Carbon Dioxide Level 20.7 MEQ/L Anion Gap 10 MEQ/L Blood Urea Nitrogen 23 MG/DL Creatinine 1.27 MG/DL Estimat Glomerular Filtration 40 ML/MIN Rate Random Glucose 150 MG/DL Lactic Acid Level 1.7 mmol/L Calcium Level 9.2 MG/DL Total Bilirubin 0.5 MG/DL Aspartate Amino Transf 30 U/L (AST/SGOT) Alanine Aminotransferase 20 U/L (ALT/SGPT) Alkaline Phosphatase 128 U/L Total Protein 8.3 GM/DL Albumin 3.9 GM/DL [facility] Medical Record Reviewed: Yes Supervised Visit with PRABHA: Yes Diagnosis Primary Impression: Left hip pain Med/Other Pt SpecificInfo: Prescription(s) given Scripts Tramadol 50 Mg Tab50 Mg PO Q6H PRN (PAIN) #12 TAB Ref 0 Prov:Christina Velarde MD 12/17/16 Disposition: 01 DISCHARGE HOME Condition: Stable Christina Velarde MD Dec 17, 2016 00:57
[2016-12-17] MEDS ORDERED: ACETAMINOPHEN/HYDROcodone 325 MG/5 MG TAB PO ONE (01:45)
--- NOTE | 2016-12-17 02:35 | RADRPT ---
EXAM DATE/TIME: 12/17/2016 02:12 [facility] COMPARISON: No previous studies available for comparison. INDICATIONS : Left leg pain. MEDICAL HISTORY : Hypercholesterolemia. Hypertension. Hearing loss. SURGICAL HISTORY : Hysterectomy. Splenectomy. Bowel obstruction repair. Left hip/femur repair. Craniotomy. ENCOUNTER: Initial ACUITY: 2 day PAIN SCORE: LOCATION: Left leg. TECHNIQUE: Venous ultrasound of the leg was performed from the inguinal ligament to the proximal calf. Real-les e, color Doppler and spectral tracing, compression and augmentation techniques were used. FINDINGS: There is normal compressibility of the deep venous system from the inguinal region to the proximal ca lf. No echogenic clot is seen in the lumen of the common femoral, femoral, popliteal, and posterior tibial veins. There is a normal response of the venous system to proximal and distal augmentation an d respiration. CONCLUSION: Normal examination. Igor Mendez MD on December 17, 2016 at 2:33 Board Certified Radiologist. This report was verified electronically.
[2016-12-17 05:00] VITALS: BP 143/77
[2016-12-17] MEDS ORDERED: PRED20 PO (05:10)
== END 2016-12-17 05:00 | disposition home or self-care (01) ==
LOC: NEPE 21:04
DX: M25.552 Pain in left hip (principal); M79.605 Pain in left leg; R10.2 Pelvic and perineal pain
CPT/HCPCS: 72192; 73700; 80053; 83605; 85025; 93971; 96374; 96375; 99285; J1170; J2405

== ENCOUNTER 2017-05-28 13:47 | Emergency (ER) | payer OTHER, MEDICAID ==
[~2017-05-28] VITALS: Ht 157.5 cm; Wt 50.0 kg
[~2017-05-28 13:47] MED LIST changes: -ALEVE PO; +ASPI-516 CHEW; -ASPI81CH CHEW; -CIPR-9 PO; -METR-1 PO; +NAPR500T2 PO; -OXYC-392 PO; +PRED20 PO
[2017-05-28 13:49] VITALS: BP 127/99; PULSE 87; RESP 20; TEMP 98.3; O2SAT 96
[2017-05-28] MEDS ORDERED: ONDANSETRON HCL 4 MG/2 ML VIAL IV PUSH ONE (14:15)
[2017-05-28] MEDS ORDERED: MORPHINE SULFATE 2 MG/ML INJ IV PUSH ONE (14:15)
--- NOTE | 2017-05-28 14:18 | PD ---
HPI Chief Complaint: Pain: Acute or Chronic Time Seen by Provider: 14:03 Travel History International Travel<30 days: No Contact w/Intl Traveler<30days: No Traveled to known affect area: No History of Present Illness HPI 81-year-old female presents for evaluation of left ankle and calf pain. Symptoms started 5 days ago. She describes it as a throbbing pain which is constant, worse when walking. Denies any injuries. Denies any recent travel, surgery, denies any immobilization. She reports that she ambulates at home without a walker or a wheelchair. She denies fevers, chills, chest pain, shortness of breath, abdominal pain, nausea, vomiting. No history of DVT. Reports history of hypertension and hyperlipidemia. No other complaints. PFSH Past Medical History Cardiovascular Problems: Yes (HTN) High Cholesterol: Yes Diminished Hearing: Yes Past Surgical History Abdominal Surgery: Yes (Bowel obstuction) Hysterectomy: Yes Neurologic Surgery: Yes (craniotomy*2 ) Other Surgery: Yes (splenectomy ) Social History Alcohol Use: No Tobacco Use: No Substance Use: No Allergies-Medications (Allergen,Severity, Reaction): Coded Allergies: Sulfa (Sulfonamide Antibiotics) (Unverified Allergy, Unknown, 01/03/17) diatrizoate meglumine (Unverified Allergy, Unknown, 01/03/17) gadobenic acid (Unverified Allergy, Unknown, 01/03/17) gadodiamide (Unverified Allergy, Unknown, 01/03/17) gadoteridol (Unverified Allergy, Unknown, 01/03/17) iodixanol (Unverified Allergy, Unknown, 01/03/17) iohexol (Unverified Allergy, Unknown, 01/03/17) penicillin G (Unverified Allergy, Unknown, 01/03/17) tramadol (Unverified Allergy, Unknown, 01/03/17) Reported Meds & Prescriptions Reported Meds & Active Scripts Active Naproxen 500 Mg Tab 500 Mg PO BID 7 Days Prednisone 20 Mg Tab 40 Mg PO DAILY Take 40 mg (2 tablets) daily for 5 days Pantoprazole (Pantoprazole Sodium) 40 Mg Tab 40 Mg PO DAILY Synthroid (Levothyroxine Sodium) 100 Mcg Tab 100 Mcg PO DAILY@06 Reported Naproxen 500 Mg Tab 500 Mg PO BID Aspirin 81 Mg Chew 81 Mg CHEW DAILY Atenolol 50 Mg Tab 50 Mg PO DAILY Atorvastatin (Atorvastatin Calcium) 40 Mg Tab 40 Mg PO HS Xanax (Alprazolam) 0.5 Mg Tab 0.5 Mg PO Q6H PRN Review of Systems Except as stated in HPI: all other systems reviewed are Neg Physical Exam Narrative GENERAL: Well-developed well-nourished female who appears uncomfortable on initial examination. SKIN: Warm and dry. HEAD: Atraumatic. Normocephalic. EYES: Pupils equal and round. No scleral icterus. No injection or drainage. ENT: No nasal bleeding or discharge. Mucous membranes pink and moist. NECK: Trachea midline. No JVD. CARDIOVASCULAR: Regular rate and rhythm. No murmur appreciated. RESPIRATORY: No accessory muscle use. Clear to auscultation. Breath sounds equal bilaterally. GASTROINTESTINAL: Abdomen soft, non-tender, nondistended. Hepatic and splenic margins not palpable. MUSCULOSKELETAL: There is some soft tissue swelling to the lateral left ankle which is tender to palpation. The left ankle joint is not erythematous or warm to palpation. There is pain with dorsi and plantar flexion of the ankle. The Achilles tendon is intact. Left calf is tender. There is no pitting edema. 2 + dorsalis pedis pulse. NEUROLOGICAL: Awake and alert. No obvious cranial nerve deficits. Motor grossly within normal limits. Normal speech. PSYCHIATRIC: Appropriate mood and affect; insight and judgment normal. Data Data Last Documented VS Vital Signs Date Time Temp Pulse Resp B/P (MAP) Pulse Ox O2 Delivery O2 Flow Rate FiO2 05/28/17 15:19 17 05/28/17 13:49 98.3 87 127/99 (108) 96 Orders Orders Morphine Inj (Morphine Inj) (05/28/17 14:15) Ondansetron Inj (Zofran Inj) (05/28/17 14:15) Ankle, Complete ([id number]) (05/28/17 ) Us Leg Venous Doppler (05/28/17 14:14) Complete Blood Count With Diff (05/28/17 14:14) Basic Metabolic Panel (Bmp) (05/28/17 14:14) Act Partial Throm Time (Ptt) (05/28/17 14:14) Prothrombin Time / Inr (Pt) (05/28/17 14:14) Westergren Sedimentation Rate (05/28/17 15:25) C-Reactive Protein (Crp) (05/28/17 15:25) Ketorolac Inj (Toradol Inj) (05/28/17 16:30) Dexamethasone Inj (Decadron Inj) (05/28/17 17:00) Labs Laboratory Tests Test 05/28/17 15:00 05/28/17 15:25 White Blood Count 13.9 TH/MM3 Red Blood Count 3.44 MIL/MM3 Hemoglobin 11.4 GM/DL Hematocrit 33.0 % Mean Corpuscular Volume 95.9 FL Mean Corpuscular Hemoglobin 33.0 PG Mean Corpuscular Hemoglobin Concent 34.4 % Red Cell Distribution Width 14.2 % Platelet Count 370 TH/MM3 Mean Platelet Volume 8.3 FL Neutrophils (%) (Auto) 44.0 % Lymphocytes (%) (Auto) 39.6 % Monocytes (%) (Auto) 13.4 % Eosinophils (%) (Auto) 2.8 % Basophils (%) (Auto) 0.2 % Neutrophils # (Auto) 6.1 TH/MM3 Lymphocytes # (Auto) 5.5 TH/MM3 Monocytes # (Auto) 1.9 TH/MM3 Eosinophils # (Auto) 0.4 TH/MM3 Basophils # (Auto) 0.0 TH/MM3 CBC Comment AUTO DIFF Differential Total Cells Counted 100 Neutrophils % (Manual) 41 % Lymphocytes % 39 % Monocytes % 12 % Eosinophils % 6 % Basophils % 2 % Neutrophils # (Manual) 5.7 TH/MM3 Differential Comment FINAL DIFF MANUAL Platelet Estimate NORMAL Platelet Morphology Comment ENLARGED Erythrocyte Sedimentation Rate 42 mm/hr Prothrombin Time 10.6 SEC Prothromb Time International Ratio 1.0 RATIO Activated Partial Thromboplast Time 26.9 SEC Blood Urea Nitrogen 15 MG/DL Creatinine 0.97 MG/DL Random Glucose 99 MG/DL Calcium Level 8.5 MG/DL Sodium Level 140 MEQ/L Potassium Level 4.3 MEQ/L Chloride Level 110 MEQ/L Carbon Dioxide Level 23.2 MEQ/L Anion Gap 7 MEQ/L Estimat Glomerular Filtration Rate 55 ML/MIN C-Reactive Protein 0.41 MG/DL [facility] Medical Decision Making Medical Screen Exam Complete: Yes Emergency Medical Condition: Yes Medical Record Reviewed: Yes Differential Diagnosis Ankle sprain, gouty arthritis, septic arthritis, fracture, Achilles tendon rupture, DVT Narrative Course 81-year-old female here with left ankle pain that radiates into the left. On examination she has some soft tissue swelling primarily to the lateral left ankle. The ankle was not hot or erythematous and does not appear septic. Plan is for basic lab work, x-ray of the left ankle, ultrasound left leg. She was given analgesics. CBC reveals WBC of 13.9 with no left shift. BMP is unremarkable. CRP is only minimally elevated at 0.41 and he is are mildly elevated at 42. Ultrasound of the left leg reveals no acute abnormalities. X-ray of the ankle reveals no acute abnormalities. The patient was examined with Dr. Luna who agrees with plan of care. The patient will be treated here with a dose of Decadron and Toradol. She'll be discharged with a short course of Naprosyn. She is encouraged to follow-up here or with her primary care physician in one day for recheck. She is agreeable with this plan. Discussed signs and symptoms that would warrant returning to the emergency room. She is stable for discharge. Diagnosis Primary Impression: Left ankle pain Additional Instructions: Use walker for ambulation. Medication as prescribed. Follow up here or with primary care physician in one day for recheck. As discussed, return for any acutely new or worsening symptoms such as fevers, severe pain, warm or erythematous joint. Med/Other Pt SpecificInfo: Prescription(s) given, Orthopedic Instructions Scripts Naproxen (Naproxen) 500 Mg Tab 500 MG PO BID for 7 Days, #14 TAB 0 Refills Prov: Bronson Luna MD 05/28/17 Disposition: 01 DISCHARGE HOME Condition: Stable Danny Valenzuela May 28, 2017 14:18
[2017-05-28 15:17] LABS: AUTOMATED NEUTROPHIL # 6.1 TH/MM3 (1.8-7.7); BASOPHIL % 0.2 % (0.0-2.0); EOSINOPHIL # 0.4 TH/MM3 (0-0.4); EOSINOPHIL % 2.8 % (0.0-4.0); HEMOGLOBIN 11.4 GM/DL (11.6-15.3); LYMPH % 39.6 % (9.0-44.0); LYMPHOCYTE # 5.5 TH/MM3 (1.0-4.8); MEAN CELL VOLUME 95.9 FL (80.0-100.0); MEAN CORPUSCULAR HGB CONC 34.4 % (32.0-36.0); MEAN PLATELET VOLUME 8.3 FL (7.0-11.0); MONO % 13.4 % (0.0-8.0); MONOCYTE # 1.9 TH/MM3 (0-0.9); PLATELET COUNT 370 TH/MM3 (150-450); RED BLOOD COUNT 3.44 MIL/MM3 (4.00-5.30); RED CELL DISTRIBUTION WIDTH 14.2 % (11.6-17.2); WHITE BLOOD COUNT 13.9 TH/MM3 (4.0-11.0)
[2017-05-28 15:35] LABS: BICARBONATE 23.2 MEQ/L (21.0-32.0); CALCIUM 8.5 MG/DL (8.5-10.1); CREATININE 0.97 MG/DL (0.50-1.00)
[2017-05-28 15:55] LABS: PROTHROMBIN TIME - PATIENT 10.6 SEC (9.8-11.6)
[2017-05-28] MEDS ORDERED: KETOROLAC TROMETHAMINE 30 MG/ML (IVP) VIAL IV PUSH ONE (16:30)
--- NOTE | 2017-05-28 16:33 | RADRPT ---
EXAM DATE/TIME: 05/28/2017 15:19 [facility] COMPARISON: US LEG LEFT VENOUS DOPPLER, December 17, 2016, 2:12. INDICATIONS : Left leg pain. MEDICAL HISTORY : Hypercholesterolemia. Hypertension. SURGICAL HISTORY : Splenectomy. Hysterectomy. Craniotomy x2. Bowel obstruction surgery. Orthopedic surgery, left hip a nd femur. ENCOUNTER: Initial ACUITY: 2 day PAIN SCORE: 8/10 LOCATION: Left leg. TECHNIQUE: Venous ultrasound of the leg was performed from the inguinal ligament to the proximal calf. Real-les e, color Doppler and spectral tracing, compression and augmentation techniques were used. FINDINGS: There is normal compressibility of the deep venous system from the inguinal region to the proximal ca lf. No echogenic clot is seen in the lumen of the common femoral, femoral, popliteal, and posterior tibial veins. There is a normal response of the venous system to proximal and distal augmentation an d respiration. CONCLUSION: 1. No evidence of deep venous thrombosis. Armando Stephens MD on May 28, 2017 at 16:31 Board Certified Radiologist. This report was verified electronically.
[2017-05-28] MEDS ORDERED: NAPR500T2 PO (16:47)
[2017-05-28 16:59] LABS: BASOPHILS 2 % (0-2); LYMPHOCYTES 39 % (9-44); MONOCYTES 12 % (0-8); NEUTROPHIL # MANUAL DIFF 5.7 TH/MM3 (1.8-7.7); POLYS (SEG NEUTROPHILS) 41 % (16-70)
--- NOTE | 2017-05-28 16:59 | RADRPT ---
EXAM DATE/TIME: 05/28/2017 15:06 [facility] COMPARISON: No previous studies available for comparison. INDICATIONS : Ankle pain with no known injury. MEDICAL HISTORY : Hypercholesterolemia. Hypertension. Hearing loss. SURGICAL HISTORY : Hysterectomy. Splenectomy. Bowel obstruction repair. Left hip/femur repair. Craniotomy. ENCOUNTER: Initial ACUITY: 3 days PAIN SCORE: 8/10 LOCATION: Left Ankle. FINDINGS: Three view exam was performed of the left ankle. The bony structures are in normal alignment. No ev idence of fracture, dislocation, or soft tissue swelling. The ankle mortise is intact. No radiopaqu e foreign bodies are seen. Bony mineralization is normal. CONCLUSION: 1. Negative examination of the ankle. Armando Stephens MD on May 28, 2017 at 16:57 Board Certified Radiologist. This report was verified electronically.
[2017-05-28] MEDS ORDERED: DEXAMETHASONE SOD PHOS 4 MG/ML VIAL IV PUSH ONE (17:00)
== END 2017-05-28 18:02 | disposition home or self-care (01) ==
LOC: NEPE 13:47
DX: M25.572 Pain in left ankle and joints of left foot (principal); M79.605 Pain in left leg; I10 Essential (primary) hypertension; E78.5 Hyperlipidemia, unspecified; E78.00 Pure hypercholesterolemia, unspecified; Z79.82 Long term (current) use of aspirin; Z79.899 Other long term (current) drug therapy; Z88.2 Allergy status to sulfonamides; Z88.0 Allergy status to penicillin
CPT/HCPCS: 73610; 80048; 85007; 85027; 85610; 85652; 85730; 86140; 93971; 96374; 96375; 99285; J1100; J1885; J2270; J2405